=== PATIENT | female | born 1955 | race Caucasian/White ===

== ENCOUNTER → 2021-05-31 04:02 | Outpatient (CLI) | payer BC, SELFPAY ==
[2021-05-31 16:54] LABS: SARS-CoV-2 RNA PCR Negative
== END ==
PROVIDERS: PCP Family Medicine; Visit Provider Internal Medicine Gastroenterology
DX: Z01.812 Encounter for preprocedural laboratory examination (principal); Z20.822 Contact with and (suspected) exposure to COVID-19
CPT/HCPCS: C9803; U0003; U0005

== ENCOUNTER 2021-06-03 01:06 | Day surgery (SDC) | payer BC, SELFPAY ==
[2021-05-20 07:44] VITALS: BMI 38.7
--- NOTE | 2021-06-02 16:25 | PM.HPGS ---
History of Present Illness History of Present Illness Consent: Risks, benefits, and alternatives have been discussed and questions answered. Patient agrees to proceed with procedure. Chief complaint: esophagitis Narrative: Edith Fletcher is a 65 year old female referred for investigation of chronic acid reflux disease. For the past couple months she has had excessive belching. She also passes quite a bit gas. She does have a CPAP machine. In addition she has had a cramping pain in the right side of her abdomen with no particular pattern. This began 1 month ago; it can last 15 minutes or even all night Review of Systems Review of Systems: All systems reviewed & are unremarkable except as noted in HPI and below PMFSH Past Medical History Medical History Asthma Essential (primary) hypertension Morbid obesity OAB (overactive bladder) MICHELLE (obstructive sleep apnea) Surgical History Surgical History History of esophagogastroduodenoscopy (EGD) Family History Family History Mother Family history of diabetes mellitus in first degree relative Sibling Family history of diabetes mellitus in first degree relative Family history of coronary artery disease Family history of malignant neoplasm of breast in first degree relative Father Family history of coronary artery disease Social History Social History Smoking packs per day: 1 Smoking cigarettes per day: 20.0 Smoking status: Former smoker Tobacco type: cigarettes Smoking end date: 07/23/95 Alcohol intake: never Substance use: never Substance use type: does not use Living arrangements: with family Gender identity (if verbalized by the patient): Female Spiritual care concerns: No Meds Home Medications and Allergies Home Medications Medication Instructions Recorded Confirmed Type albuterol sulfate 2.5 mg INHALATION Q4-6H PRN 02/02/20 05/20/21 History ergocalciferol (vitamin D2) 1,250 mcg PO DAILY 05/20/21 05/20/21 History furosemide 20 mg PO PRN PRN 05/20/21 05/20/21 History Allergies Allergy/AdvReac Type Severity Reaction Status Date / Time methylprednisolone Allergy Unknown Other Verified 06/03/21 10:04 Exam Const: General: alert Orientation/consciousness: patient oriented x3 Resp: Auscultation: clear to auscultation bilaterally Cardio: Rhythm: regular rhythm GI: GI Palp: Yes Soft to palpation and No Tenderness to palpation present (GI) Neuro: General: patient oriented x3 Assessment and Plan Assessment and plan (1) GERD (gastroesophageal reflux disease): Code(s): K21.9 - Gastro-esophageal reflux disease without esophagitis Status: Acute Assessment and Plan: EGD with possible biopsy or dilatation or cautery.
[2021-06-03 10:06] VITALS: BP 183/88; PULSE 82; RESP 22; TEMP 36.4; O2SAT 98; BMI 39.9
[2021-06-03] MEDS: LACTATED RINGERS 1,000 ML 150 ML IV CONT (10:10)
--- NOTE | 2021-06-03 10:30 | WPDANESEPPF ---
Anes - Initial Pre Proc Eval Procedure: Operation Date: 06/03/21 11:00 Proposed Procedures p Esophagogastroduodenoscopy - Mahamed Recinos MD Date/Time: 06/03/21 10:30 Surgeon: Mahamed Recinos MD Pre Op Diagnosis: esophagitis Patient Data Age: 65 Gender: F Height: 1.52 m Weight: 92.6 kg Last Vital Signs Temp 36.4 C 06/03/21 10:06 Pulse 82 06/03/21 10:06 Resp 22 H 06/03/21 10:06 BP 183/88 H 06/03/21 10:06 Pulse Ox 98 06/03/21 10:06 Allergies Allergy/AdvReac Type Severity Reaction Status Date / Time methylprednisolone Allergy Unknown Other Verified 06/03/21 10:04 Home Medications Medication Instructions Recorded Confirmed Type albuterol sulfate 2.5 mg INHALATION Q4-6H PRN 02/02/20 05/20/21 History ergocalciferol (vitamin D2) 1,250 mcg PO DAILY 05/20/21 05/20/21 History furosemide 20 mg PO PRN PRN 05/20/21 05/20/21 History Patient hx anesthesia problems: none Family hx anesthesia problems: none Results Review: All pre-operative results and documents have been reviewed as part of the pre-operative evaluation. [facility] Past Medical History Medical History (Updated 06/03/21 @ 10:30 by Carlos Mcnulty MD) Asthma Essential (primary) hypertension Morbid obesity OAB (overactive bladder) MICHELLE (obstructive sleep apnea) Surgical History Surgical History (Updated 06/03/21 @ 10:31 by Carlos Mcnulty MD) History of esophagogastroduodenoscopy (EGD) Family History Family History (System 11/26/19 @ 14:23 by Chiqui Vail) Mother Family history of diabetes mellitus in first degree relative Sibling Family history of diabetes mellitus in first degree relative Family history of coronary artery disease Family history of malignant neoplasm of breast in first degree relative Father Family history of coronary artery disease Social History Social History Smoking packs per day: 1 Smoking cigarettes per day: 20.0 Smoking status: Former smoker Tobacco type: cigarettes Smoking end date: 07/23/95 Alcohol intake: never Substance use: never Substance use type: does not use Living arrangements: with family Gender identity (if verbalized by the patient): Female Spiritual care concerns: No Anes - Eval Final PreProcedure Day of Procedure 06/03/21 10:30 Patient weight: morbidly obese Heart: regular rate and rhythm Lungs: clear to auscultation Airway: Mallampati scale class III and special considerations poor opening Neurological: alert and oriented ASA classification: III Emergent: no Anesthetic plan: proceed Anesthesia type and monitoring: general GIVS and standard monitoring Results Review: All pre-operative results and documents have been reviewed as part of the pre-operative evaluation. Informed Consent: The patient's anesthetic plan and its attendant risks and benefits were discussed with the patient/family/POA. Questions were solicited and answers provided to the satisfaction of the patient/family/POA.
[2021-06-03 11:47] VITALS: BP 137/80; PULSE 92; RESP 22; O2SAT 98
[2021-06-03 11:57] VITALS: BP 144/87; PULSE 88; RESP 19; O2SAT 97
[2021-06-03 12:07] VITALS: BP 155/88; PULSE 83; RESP 15; O2SAT 98
== END 2021-06-03 12:30 | disposition home or self-care (01) ==
PROVIDERS: PCP Family Medicine; Visit Provider Internal Medicine Gastroenterology
PROC: 0DJ08ZZ Inspection of Upper Intestinal Tract, Via Natural or Artificial Opening Endoscopic (ICD-10-PCS; CPT 43235; principal; 2021-06-03 11:00)
DX: K21.00 Gastro-esophageal reflux disease with esophagitis, without bleeding (principal); R14.2 Eructation; K25.9 Gastric ulcer, unspecified as acute or chronic, without hemorrhage or perforation; J45.909 Unspecified asthma, uncomplicated; I10 Essential (primary) hypertension; G47.33 Obstructive sleep apnea (adult) (pediatric); N32.81 Overactive bladder; Z87.891 Personal history of nicotine dependence; E66.9 Obesity, unspecified; Z68.39 Body mass index [BMI] 39.0-39.9, adult; Z79.51 Long term (current) use of inhaled steroids
CPT/HCPCS: 43239; 87081; 88305; J2704; J7120

== ENCOUNTER 2024-12-17 16:29 | Emergency (ER) | payer MEDICARE, SELFPAY ==
--- OUTSIDE RECORDS SUMMARY | 2024-12-17 16:33 | XMS_ITS | CONTINUITY OF CARE DOCUMENT ---
Author Name carlosxuanharper Address Unknown Organization [facility] Address [id number] [place] [address] [address] [place] [address] Phone [phone] Care Team Providers Care [place] Refinisher Name Role Phone Froilan Philip MD Unavailable [phone] Kael Awan MD Unavailable Kael Awan MD Unavailable [phone] INSURANCE PROVIDERS Payer name Policy type / Coverage type [place] red [employer] ID [id number]
--- OUTSIDE RECORDS SUMMARY | 2024-12-17 16:34 | XMS_ITS | Clinical Summary ---
Author Organization [facility] Address [address] [place] [address] Care Team Providers Care Card Seller Name Role Phone Tyler Davis MD Primary Care Provider [phone] Allergies Active Allergy Reactions Criticality Noted Date Comments Lisinopril Headache,Other (See comments),Rash Medium 06/13/2023 Morphine Other (See comments) Low 01/05/2023 Pt doesn't like it It makes me feel like I am floating on air Omeprazole Other (See comments) Low 02/13/2018 It doesn't work Famotidine Rash Medium 08/21/2019 Prednisone Rash Medium 08/21/2019 Prednisone alone is ok. If I take prednisone with a lot of other medications I get a rash Medications amLODIPine (NORVASC) 2.5 mg tablet 019 Active benzonatate (TESSALON) 100 mg capsule TK ONE C PO TID PRN COU Active mupirocin (BACTROBAN) 2 % ointment KRIS EXT AA TID FOR 7 DAYS Active tolterodine LA (DETROL LA) 2 mg 24 hr capsule 020 Active triamcinolone (KENALOG) 0.1 % cream KRIS EXT AA BID 019 Active traMADoL (ULTRAM) 50 mg tablet Take 1 tablet (50 mg total) by mouth every 6 (six) hours as needed for pain 10 tablet 023 Active fluticasone propionate (FLONASE) 50 mcg/actuation nasal spray Administer 1 spray into affected nostril(s) daily as needed Active fluconazole (DIFLUCAN) 150 mg tablet Take 1 tablet by mouth today, may repeat dose in 3 days if symptoms persist. Active ketoconazole (NIZORAL) 2 % cream Active hydroCHLOROthiazi de (MICROZIDE) 12.5 mg capsule TAKE 1 CAPSULE(12.5 MG) BY MOUTH EVERY MORNING Active furosemide (LASIX) 20 mg tablet TAKE 1 TABLET BY MOUTH EVERY DAY FOR 30 DAYS Active aspirin 81 mg enteric coated tablet Take 1 tablet (81 mg total) by mouth daily Active fluticasone propion-salmetero L (ADVAIR DISKUS) 250-50 mcg/dose diskus inhaler Inhale 1 puff 2 (two) times a day 023 Active fluticasone propion-salmetero L (ADVAIR DISKUS) 250-50 mcg/dose diskus inhaler Inhale 1 puff 2 (two) times a day 023 Active HYDROcodone-aceta minophen (NORCO) 5-325 mg per tablet Take 1 tablet by mouth every 6 (six) hours as needed 025 Active LORazepam (ATIVAN) 0.5 mg tablet Take 1 tablet (0.5 mg total) by mouth 2 (two) times a day as needed Active nitrofurantoin monohydrate (MACROBID) 100 mg capsule Take 1 capsule (100 mg total) by mouth 2 (two) times a day Active nitroglycerin (NITROSTAT) 0.4 mg SL tablet 025 Active ondansetron ODT (ZOFRAN-ODT) 4 mg disintegrating tablet Take 1 tablet (4 mg total) by mouth every 8 (eight) hours as needed Active oseltamivir (TAMIFLU) 75 mg capsule TAKE 1 CAPSULE BY MOUTH TWICE A DAY FOR 5 DAYS Active traZODone (DESYREL) 50 mg tablet Take 1 tablet (50 mg total) by mouth daily Active predniSONE (DELTASONE) 20 mg tablet TAKE 2 TABLETS BY MOUTH EVERY DAY FOR 5 DAYS Active meloxicam (MOBIC) 7.5 mg tablet Take 1 tablet (7.5 mg total) by mouth daily 30 tablet 2 025 Active albuterol 1.25 mg/3 mL nebulizer solution VVN Q 6 H PRF WHZ 020 2024 Discontinued meloxicam (MOBIC) 7.5 mg tablet 020 2024 Discontinued(R eorder) albuterol (PROAIR RESPICLICK) 90 mcg/actuation inhaler Inhale 2 puffs every 6 (six) hours as needed for wheezing 2024 Discontinued celecoxib (CeleBREX) 200 mg capsule Take 1 capsule (200 mg total) by mouth daily 021 2024 Discontinued Hospital, Clinic, or Other Facility Administered Medication Ordered Dose Route Frequency Start Date End Date Status BUPivacaine HCl (MARCAINE) 0.5 % (5 mg/mL) injection 6 mLIndications:Pain in both knees, unspecified chronicity,Bilateral primary osteoarthritis of knee 6 mL OTHER One-Time Injection 11/21/2024 5 Ended BUPivacaine HCl (MARCAINE) 0.5 % (5 mg/mL) injection 6 mLIndications:Pain in both knees, unspecified chronicity,Bilateral primary osteoarthritis of knee 6 mL OTHER One-Time Injection 11/21/2024 5 Ended methylPREDNISolone acetate (DEPO-medrol) injection 80 mgIndications:Pain in both knees, unspecified chronicity,Bilateral primary osteoarthritis of knee 80 mg intra-artic One-Time Injection 11/21/2024 5 Ended triamcinolone (KENALOG) 40 mg/mL injection 80 mgIndications:Pain in both knees, unspecified chronicity,Bilateral primary osteoarthritis of knee 80 mg intra-artic One-Time Injection 11/21/2024 5 Ended Active Problems Problem Noted Date Diagnosed Date Encounter for well woman exam with abnormal find ings 12/05/2023 PERRY (stress urinary incontinence, female) 2023 Vaginal odor 12/05/2023 Encounters Date Type Department Care Team Description 12/17/2024 3:45 PM CDT Office Visit [facility] Care at [address] [address] Marlene Vail PA Pelvic pain (Primary Dx) 12/16/2024 Telephone [facility] [address] [place] [address] Office [address], [place] [address] 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 12/04/2024 Telephone [facility] [address] [place] [phone] Lety Rodriguez, SOPHIA Test Results 12/04/2024 Results Follow-Up [facility] [address] [place] [address] [place] [phone] Vi Royal, LUIS E Urine culture Urine, clean voided, NuSwab BV and Mariah, JUAN R 12/04/2024 Telephone [facility] [address] [place] [phone] Lety Rodriguez, SOPHIA Follow-Up Call 24-48 Hours 12/03/2024 11:43 AM CDT - 12/03/2024 11:59 PM CDT Hospital Encounter [facility] [address] [place] [phone] Almaz Galvez MD Abnormal ultrasound of breast Discharge Disposition: Discharge to home or self care 12/03/2024 11:12 AM CDT - 12/03/2024 11:59 PM CDT Hospital Encounter [facility] [address] [place] [phone] Almaz Galvez MD Abnormal ultrasound of breast Discharge Disposition: Discharge to home or self care 12/02/2024 Orders Only [facility] [address] [place] [address] Office Building [address] [place] [phone] Almaz Galvez MD Osteoporosis, unspecified osteoporosis type, unspecified pathological fracture presence (Primary Dx) 12/01/2024 11:30 AM CDT Office Visit [facility] [address] [facility] Office [address] [place] [address] Vi Royal NP Vaginal discharge (Primary Dx); Vaginal odor; Burning with urination; Post-traumatic stress 12/01/2024 Telephone [facility] [address] [facility] Office Building [address] [place] [address] Jade Schulz Referral Request 11/28/2024 Results Follow-Up [facility] [address] [facility] Office [address] [place] [address] Almaz Galvez MD Dexa Axial Skeleton Bone Density 1 or 2 Site 11/27/2024 12:16 PM CDT - 11/27/2024 11:59 PM CDT Hospital Encounter [facility] [address] [place] [address] [place] [phone] Postmenopausal Discharge Disposition: Discharge to home or self care 11/21/2024 8:15 AM CDT Office Visit [facility] [address] [facility] Office Building [address] [place] [address] Lucia Moncada NP Pain in both knees, unspecified chronicity (Primary Dx); Bilateral primary osteoarthritis of knee; Class 2 obesity due to excess calories with body mass index (BMI) of 35.0 to 35.9 in adult, unspecified whether serious comorbidity present 11/21/2024 7:27 AM CDT - 11/21/2024 11:59 PM CDT Hospital Encounter [facility] [address] [facility] [address] [place] [address] Pain in both knees, unspecified chronicity Discharge Disposition: Discharge to home or self care 11/13/2024 Orders Only [facility] [address] [place] [address] [place] [phone] Nieves Mario RN 11/13/2024 Telephone [facility] [address] [place] [address] [place] [phone] Nieves Mario RN Appointment 10/20/2024 Telephone [facility] [address] [facility] [address] [place] [phone] Lety Rodriguez RN 09/30/2024 Telephone [facility] [address] [facility] [address] [place] [phone] Ayesha Ramirez, violin maker hand Only from Last 3 Months Surgical History Surgery Date Site/Laterality Comments HYSTERECTOMY SECTION UPPER GASTROINTESTINAL ENDOSCOPY BREAST BIOPSY 12/03/2024 Right Medical History Medical History Date Comments Osteoarthritis Hypertension MICHELLE on CPAP Dysphagia Asthma Family History Medical History Relation Name Comments Arthritis Father Heart disease Father Arthritis Mother Diabetes Mother Breast cancer Sister Relation Name Status Comments Father Mother Sister Social History Tobacco Use Types Packs/Day Years Used Date Smoking Tobacco: Former Cigarettes 1 5 2 000 - 2004 Smokeless Tobacco: Never Tobacco Cessation:Counseling Given: Not Answered Alcohol Use Standard Drinks/Week Comments Never 0 (1 standard drink = 0.6 oz pur e alcohol) AUDIT-C Answer Date Recorded Q1: How often do you have a drink containing alc ohol? Never 10/09/2023 Average Number of Drinks Not on file 024 Frequency of Binge Drinking Not on file 09/20 Personal Safety Answer Date Recorded Have you ever been in or are you currently in a harmful physical or emotional relationship or is someone making you feel afraid or unsafe? 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 Not on file Not on file Obstetrics History Para Term AB IAB SAB Ectopic Multiple Livin g Live Births 3 3 3 Date Outcome GA Total Labor Labor/2nd/3rd Weight Sex Type Anes PTL Elvia A1 A5 Name Clin 1974 Term M CS-LTr anv Donal 1975 Term M CS-LTr anv Paul 1977 Term M CS-LTr anv Mendel Last Filed Vital Signs Vital Sign Reading Time Taken Comments Blood Pressure 172/87 12/17/2024 3:46 PM CDT Pulse 94 12/17/2024 3:46 PM CDT Temperature 36.6 C (97.8 F) 12/17/2024 3:46 PM CDT Respiratory Rate 18 12/17/2024 3:46 PM CDT Oxygen Saturation 96% 12/17/2024 3:46 PM CDT Inhaled Oxygen Concentration - - Weight 77.2 kg (170 lb 3.2 oz) 12/17/2024 3:46 P M CDT Height 146.1 cm (4' 9.52) 12/17/2024 3:46 PM CD T Body Mass Index 36.17 12/17/2024 3:46 PM CDT Plan of Treatment Health Maintenance Due Date Last Done Comments Colon Cancer Screening-Colonoscopy 1955 Depression Screening 1955 Hepatitis C Screening 1955 Hepatitis B Screening 1975 Zoster Vaccine (1 of 2) 2007 Pneumococcal vaccine 65+ (2 of 2 - PCV) 10/16/2020 0 10/17/2019 Covid-19 Vaccine (2 - season) 2024 Well Visit 65+ 12/03/2024 12/04/2023 Influenza Vaccine (Season Ended) 2025 Breast Cancer Screening-Mammogram 09/16/2025 025 Fall Risk Assessment 12/03/2025 12/03/2024 DTaP/Tdap/Td Vaccine (2 - Td or Tdap) 05/10/2026 Osteoporosis Screening-Bone Density Scan 11/27/2026 11/27/2024, 09/10/2019 Medical Devices Implanted Type Area Paperhanger Assistant Device Identifier Shelf Expiration Date Model / Serial / Lot Bard Peripheral Vascular Senomark Ultracor Bard 14ga 10cm Rigid Needle 1 Microfiber Pad [id number] - [id number] Implanted:Qty: 1 on 12/03/2024 at [facility] [employer] [id number] / / Procedures Procedure Name Priority Date/Time Associated Diagnosis Comments MAMM POST CLIP PLACEMENT RIGHT Schedule Routine, Read Routine (OP Routine) 12/03/2024 1:25 PM CDT Abnormal ultrasound of breast US GUIDED BREAST BIOPSY RIGHT Schedule Routine, Read Routine (OP Routine) 12/03/2024 12:55 PM CDT Abnormal ultrasound of breast SURGICAL PATHOLOGY Routine 12/03/2024 12:47 PM CDT Abnormal ultrasound of breast NUSWAB BV AND MARIAH, JUAN R Routine 12/01/2024 4:41 AM CDT URINE CULTURE Routine 12/01/2024 2:31 AM CDT Burning with urination DEXA AXIAL SKELETON BONE DENSITY 1 OR MORE SITES Schedule Routine, Read Routine (OP Routine) 11/27/2024 12:56 PM CDT Postmenopausal [place] ARTHROCENTESIS ASPIR&/INJ MAJOR JT/BURSA W/O US Routine 11/21/2024 8:15 AM CDT Pain in both knees, unspecified chronicity Bilateral primary osteoarthritis of knee XR KNEE RIGHT 4 OR MORE VIEWS Schedule Routine, Read Routine (OP Routine) 11/21/2024 8:03 AM CDT Pain in both knees, unspecified chronicity XR KNEE LEFT 4 OR MORE VIEWS Schedule Routine, Read Routine (OP Routine) 11/21/2024 8:03 AM CDT Pain in both knees, unspecified chronicity XR PELVIS 1 OR 2 VIEWS Schedule Routine, Read Routine (OP Routine) 11/21/2024 8:03 AM CDT Pain in both knees, unspecified chronicity DIAGNOSTIC MAMMOGRAM BILATERAL W SUNDAY Schedule Routine, Read Routine (OP Routine) 09/16/2024 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 There is no evidence of atypia or malignancy. This is concordant and benign. Resume annual screening mammography in 12 months. Electronically signed by: Nuris Triplett MD Impressions 12/03/2024 1:51 PM CDT Ultrasound-guided core needle biopsy was performed without complication. Pathology report is pending. OVERALL FINAL ASSESSMENT: Post-procedure mammogram for marker placement. Electronically signed by: Jennifer Cordero M.D. Narrative 12/03/2024 1:51 PM CDT ULTRASOUND-GUIDED CORE BIOPSY RIGHT BREAST, RIGHT POSTPROCEDURE MAMMOGRAM 2D CLINICAL HISTORY: 69-year-old woman for core needle biopsy of the right breast at 9:30 o'clock 7 cm from nipple. PROCEDURE: The risks, and potential complications of percutaneous biopsy, including bleeding and infection, were reviewed with the patient. Her written informed consent was obtained. A time-out procedure was performed. The patient was positioned on the ultrasound table and the skin overlying the outer central breast was prepped and draped in usual sterile fashion. 1% lidocaine was administered for subcutaneous anesthesia, and 1% lidocaine with epinephrine was infiltrated about the mass. A skin esdras was made with a #11 blade. Under ultrasound visualization, a 14-gauge spring-loaded Bard biopsy needle was advanced to the mass, and 4 core specimens were obtained. A ribbon-shaped biopsy marker was placed. Hemostasis was obtained. The skin incision was closed with skin glue. The excised tissue was placed in formalin and transported to pathology. Postbiopsy two view mammography confirms postbiopsy changes in the upper outer breast, and that the biopsy marker is in the expected location. Density: There are scattered areas of fibroglandular density. An icepack was applied to the biopsy site. The patient was given written and verbal post-biopsy instructions. She tolerated the procedure well, and left the [facility] in good condition, without evidence of immediate complication. us Almaz Galvez MD IMG MAMMO PROCEDURES Edited Result - Final * US Guided Breast Biopsy Right (12/03/2024 12:55 PM CDT) Anatomical Region Laterality Modality Breast Right Ultrasound 12/03/2024 1:51 PM CDT Addenda Addendum by Nuris Triplett MD on 12/04/2024 2:41 PM CDT The pathology report dictated separately demonstrates a benign fibroadenoma. There is no evidence of atypia or malignancy. This is concordant and benign. Resume annual screening mammography in 12 months. Electronically signed by: uNris Triplett MD Impressions 12/03/2024 1:51 PM CDT Ultrasound-guided core needle biopsy was performed without complication. Pathology report is pending. OVERALL FINAL ASSESSMENT: Post-procedure mammogram for marker placement. Electronically signed by: Jennifer Cordero M.D. Narrative 12/03/2024 1:51 PM CDT ULTRASOUND-GUIDED CORE BIOPSY RIGHT BREAST, RIGHT POSTPROCEDURE MAMMOGRAM 2D CLINICAL HISTORY: 69-year-old woman for core needle biopsy of the right breast at 9:30 o'clock 7 cm from nipple. PROCEDURE: The risks, and potential complications of percutaneous biopsy, including bleeding and infection, were reviewed with the patient. Her written informed consent was obtained. A time-out procedure was performed. The patient was positioned on the ultrasound table and the skin overlying the outer central breast was prepped and draped in usual sterile fashion. 1% lidocaine was administered for subcutaneous anesthesia, and 1% lidocaine with epinephrine was infiltrated about the mass. A skin esdras was made with a #11 blade. Under ultrasound visualization, a 14-gauge spring-loaded Bard biopsy needle was advanced to the mass, and 4 core specimens were obtained. A ribbon-shaped biopsy marker was placed. Hemostasis was obtained. The skin incision was closed with skin glue. The excised tissue was placed in formalin and transported to pathology. Postbiopsy two view mammography confirms postbiopsy changes in the upper outer breast, and that the biopsy marker is in the expected location. Density: There are scattered areas of fibroglandular density. An icepack was applied to the biopsy site. The patient was given written and verbal post-biopsy instructions. She tolerated the procedure well, and left the [facility] in good condition, without evidence of immediate complication. us Almaz Galvez MD IMG MAMMO PROCEDURES Edited Result - Final * Surgical pathology (12/03/2024 12:47 PM CDT) Tissue (Breast biopsy, needle core) 12/03/2024 12:47 PM CDT Comment:Dr. Cordero- Hypoec hoic mass. Narrative PATHOLOGY [facility] - 12/04/2024 2:02 PM CDT [address] [address] Tele: Nieves Ibrahim MD - Circuit Board Repair Technician Note to Patients: This report may contain a detailed description of human tissue sent by a health care provider to the laboratory for pathologic evaluation. The content of this report is essential for diagnosis and may provide important critical findings. This information may be unfamiliar to patients to review without a medical professional present. It is advised that the patient review this report in the presence of a health care provider who can answer questions and explain the details. SURGICAL PATHOLOGY REPORT Patient Name: EDITH WITT Address: [address] [place] [phone] Gender: F : 1955 (Age: 69) Service: Location: , Hospital #: [id number] Patient Type: [facility] Taken: 12/03/2024 Received 12/03/2024 Reported: 12/04/2024 Physician(s): [facility] - MD Tyler Black M.D. DIAGNOSIS: Breast, right, 9:30, 7 cm from nipple, biopsy of mass: - Fibroadenoma - Negative for atypia or malignancy /12/04/2024 14:02 Examining Pathologist: Carlos Valdez M.D. Report Reviewed and Electronically Signed By Carlos Valdez M.D. SPECIMEN TYPE: A: RT BREAST 9:30 7CMFN; 4X14G CORES CLINICAL IMPRESSION AND HISTORY: Right breast 9:30-hypoechoic mass. GROSS DESCRIPTION: Received in formalin labeled with EDITH GRAVOIS and right breast 9:30, 7 cm from nipple, core 4 x 14 gauge cores are five singh fibrous cores of tissue ranging from 0.3 cm to 1.3 cm. Specimen is inked, placed in filter paper. The specimen was collected 12:47 PM placed in fixative at 12:55 PM on 12/03/2024. Following standard processing protocols, this specimen will be fixed for no less than 6 hours and no greater than 72 hours. Exceptions to this protocol will be noted in the final report. The specimen is entirely submitted in cassette labeled A1. [facility] MICROSCOPIC DESCRIPTION: Sections of the right breast 9:30, 7 cm from nipple show strands of dense sclerotic breast tissue stroma with a few flattened branching ductal components and focal adenosis with few minute calcifications. To further evaluate the material deeper levels are performed and show no additional findings. Immunohistochemical stains are performed to further evaluate the material. Pancytokeratin stain shows no subtle infiltrative epithelial components and P63 and Calponin IHC stains demonstrate retention of myoepithelium around ductal and lobular components. Clerical Data Follows A; 19814, 02229, 10656(2) REPORT IMAGES AND/OR SCANNED DOCUMENTS ONLY VIEWABLE IN PDF FORMAT The immunohistochemical test(s) cited in this report, if any, was developed and its performance characteristics determined by [facility]. It has not been cleared or approved by the U.S. Food and Drug Administration. The FDA has determined that such clearance or approval is not necessary. This test is used for clinical purposes. It should not be regarded as investigational or for research. [facility] is certified under the Clinical Laboratory Improvement Amendments of 1988 (CLIA) as qualified to perform high complexity testing. Immunostains were performed on formalin-fixed paraffin embedded tissue using a polymer diaminobenzidine chromogen detection system. Antibodies used may include clone SP1 (rabbit monoclonal, estrogen receptor), clone 1E2 (rabbit monoclonal progesterone receptor), Ki-67 (rabbit monoclonal, 30-9), CD117 (rabbit polyclonal, c-kit), and anti-Her-2/emilia (4B5) (rabbit monoclonal primary antibody). In the event that immunohistochemistry or special stains have been performed, attending physician has confirmed appropriateness of controls. Frozen section, operating room consultation, gross examination and dissection, and case sign out may have been performed in part or completely in the following laboratories: [facility], [address] [facility], [place] [address] [facility], [address], [place] [address]. us Almaz Galvez MD LAB PATHOLOGY ORDERABLES Fi nal Result PATHOLOGY [facility] Laboratory Receiving [facility] [place], [place] [id number] * NuSwab BV and Mariah, JUAN R (12/01/2024 4:41 AM CDT) Atopobium vaginae Low - 0 Score [facility] - 01 BVAB 2 Low - 0 Score [facility] - 01 Megasphaera 1 Low - 0 Score [facility] - 01 Comment: Calculate total score by adding the 3 individual bacterial vaginosis (BV) marker scores together. Total score is interpreted as follows: Total score 0-1: Indicates the absence of BV. Total score 2: Indeterminate for BV. Additional clinical data should be evaluated to establish a diagnosis. Total score 3-6: Indicates the presence of BV. C. albicans DNA Negative Negative [facility] - 01 Mariah glabrata, JUAN R Negative Negative [facility] - 01 12/01/2024 4:41 AM CDT 12/01/2024 Comment:THIEN Dsouza [facility] - 12/02/2024 7:08 PM CDT Test(s) 947767- Atopobium vaginae; 640260- BVAB 2; 521931- Megasphaera 1 was developed and its performance characteristics determined by [facility]. It has not been cleared or approved by the Food and Drug Administration. Test(s) 873658-Mlwqqin albicans, JUAN R; 107699-Ocqvbad glabrata, JUAN R was developed and its performance characteristics determined by [facility]. It has not been cleared or approved by the Food and Drug Administration. Performed at: 01 - [address] [id number] Service Delivery Consultant: Didi Calov MD, Phone: [phone] us Vi Royal NP LAB MICROBIOLOGY - GEN ERAL ORDERABLES Final Result [facility] - 01 * Urine culture Urine, clean voided (12/01/2024 2:31 AM CDT) Urine culture Final report [facility] - Result 1 Comment [facility] - 01 Comment: Mixed urogenital yael 25,000-50,000 colony forming units per mL Urine, clean voided 12/01/2024 2:31 AM CDT 12/01/2024 Comment:UC Narrative [facility] - 12/03/2024 7:09 AM CDT Performed at: - [address] [id number] Service Delivery Consultant: Bill Vallejo PhD, Phone: [phone] Vi Royal NP LAB MICROBIOLOGY - GEN ERAL ORDERABLES Final [facility] * Dexa Axial Skeleton Bone Density 1 or 2 Site (11/27/2024 12:56 PM CDT) Anatomical Region Laterality Modality Body N/A Digital Radiogra phy 11/27/2024 1:29 PM CDT Impressions 11/27/2024 1:29 PM CDT 1. The bone mineral density of the lumbar spine is mildly decreased. 2. The bone mineral density of the left femoral neck is moderately decreased. 3. The bone mineral density of the left total hip is mildly decreased. 4. Overall, the above findings are diagnostic of osteoporosis by WHO criteria. 5. Calculation of fracture risk using the FRAX model is not appropriate in certain settings. It was not performed in this patient because the patient met the following condition(s): some t-score for spine total or hip total or femoral neck at, or below -2.5. General comments regarding interpretation of bone density measurements: A) In children, premenopausal woman and males under age 50 not at increased risk for fractures only Z-scores, not T-scores are used to indicate risk. A Z-score above -2.0 is defined as within the expected range for age and Z-score at or less than -2.0 is below the expected range for age. A Z-score below the expected range for age in a patient with recent fractures and/or chronic corticosteroid treatment is consistent with a diagnosis of osteoporosis. B) In post menopausal women and males over 50, comparison of the measured bone mineral density with the average value in young normal subjects (the T-score) has been found to be useful in assessing fracture risk. Fracture risk approximately doubles for each 1.0 standard deviation (SD) in individual's hip or spine bone mineral density is below the average value of young normal subjects. The World Health Organization (WHO) has defined T-scores of -1.0 to -2.5 as diagnostic of low bone mass (OSTEOPENIA), and T-scores of -2.5 or lower to be diagnostic of OSTEOPOROSIS, based on the site of lowest bone density. Note that there will be a change in reporting format and reference databases as patients move from the younger population (group A) to the older population (group B) The National Osteoporosis Foundation (www.nof.org) recommends adequate intake of calcium and vitamin D and regular weight-bearing exercise in all patients. They recommend pharmacologic treatment in postmenopausal women and men age 50 and older presenting with any of the followin) Osteoporosis, after appropriate evaluation to exclude secondary causes. 2) A hip or vertebral (clinical or radiographic) fracture, regardless of the bone density. 3) Low bone mass (Osteopenia) and one or more of: other prior fractures, secondary causes associated with high risk of fracture (such as glucocorticoid use or total immobilization), or computed high risk of fracture (10-yr probability of hip fracture >= 3% or a 10-yr probability of any major osteoporosis-related fracture >= 20% based on the [place].-adapted WHO algorithm), available at http://www.shef.ac.uk/FRAX). The radiology attending physician has personally reviewed this study, and had reviewed and/or edited this written report and agrees with it. Electronically signed by: Will Cortez M.D. Narrative 11/27/2024 1:29 PM CDT BONE DENSITOMETRY OF THE SPINE AND HIP DATE OF STUDY: 11/27/2024 HISTORY: 69-year-old postmenopausal woman. FINDINGS (SPINE): The bone mineral density of L1-L4 was assessed by dual-energy x-ray absorptiometry. The average bone mineral density within this region is 0.897 gm/sq-cm. This is 0.6 standard deviations above the mean of the average bone mineral density for age- and gender-matched subjects (the Z-score). It is 1.4 standard deviations below the mean peak bone mineral density in young adults (the T-score). FINDINGS (FEMORAL NECK): The bone mineral density of the left femoral neck was assessed by dual-energy x-ray absorptiometry. The average bone mineral density within the femoral neck region is 0.521 gm/sq-cm. This is 1.3 standard deviations below the mean of the average bone mineral density for age- and gender-matched subjects (the Z-score). It is 3.0 standard deviations below the mean peak bone mineral density in young adults (the T-score). FINDINGS (TOTAL HIP): The bone mineral density of the left hip was assessed by dual-energy x-ray absorptiometry. The average bone mineral density within the total hip region is 0.699 gm/sq-cm. This is 0.6 standard deviations below the mean of the average bone mineral density for age- and gender-matched subjects (the Z-score). It is 2.0 standard deviations below the mean peak bone mineral density in young adults (the T-score). SUMMARY OF CURRENT RESULTS: Region BMD T-score Z-score AP Spine (L1-L4) 0.897 -1.4 0.6 Femoral Neck (Left) 0.521 -3.0 -1.3 Total Hip (Left) 0.699 -2.0 -0.6 Procedure Note Will Cortez MD - 11/27/2024 BONE DENSITOMETRY OF THE SPINE AND HIP DATE OF STUDY: 11/27/2024 HISTORY: 69-year-old postmenopausal woman. FINDINGS (SPINE): The bone mineral density of L1-L4 was assessed by dual-energy x-ray absorptiometry. The average bone mineral density within this region is 0.897 gm/sq-cm. This is 0.6 standard deviations above the mean of the average bone mineral density for age- and gender-matched subjects (the Z-score). It is 1.4 standard deviations below the mean peak bone mineral density in young adults (the T-score). FINDINGS (FEMORAL NECK): The bone mineral density of the left femoral neck was assessed by dual-energy x-ray absorptiometry. The average bone mineral density within the femoral neck region is 0.521 gm/sq-cm. This is 1.3 standard deviations below the mean of the average bone mineral density for age- and gender-matched subjects (the Z-score). It is 3.0 standard deviations below the mean peak bone mineral density in young adults (the T-score). FINDINGS (TOTAL HIP): The bone mineral density of the left hip was assessed by dual-energy x-ray absorptiometry. The average bone mineral density within the total hip region is 0.699 gm/sq-cm. This is 0.6 standard deviations below the mean of the average bone mineral density for age- and gender-matched subjects (the Z-score). It is 2.0 standard deviations below the mean peak bone mineral density in young adults (the T-score). SUMMARY OF CURRENT RESULTS: Region BMD T-score Z-score AP Spine (L1-L4) 0.897 -1.4 0.6 Femoral Neck (Left) 0.521 -3.0 -1.3 Total Hip (Left) 0.699 -2.0 -0.6 IMPRESSION: 1. The bone mineral density of the lumbar spine is mildly decreased. 2. The bone mineral density of the left femoral neck is moderately decreased. 3. The bone mineral density of the left total hip is mildly decreased. 4. Overall, the above findings are diagnostic of osteoporosis by WHO criteria. 5. Calculation of fracture risk using the FRAX model is not appropriate in certain settings. It was not performed in this patient because the patient met the following condition(s): some t-score for spine total or hip total or femoral neck at, or below -2.5. General comments regarding interpretation of bone density measurements: A) In children, premenopausal woman and males under age 50 not at increased risk for fractures only Z-scores, not T-scores are used to indicate risk. A Z-score above -2.0 is defined as within the expected range for age and Z-score at or less than -2.0 is below the expected range for age. A Z-score below the expected range for age in a patient with recent fractures and/or chronic corticosteroid treatment is consistent with a diagnosis of osteoporosis. B) In post menopausal women and males over 50, comparison of the measured bone mineral density with the average value in young normal subjects (the T-score) has been found to be useful in assessing fracture risk. Fracture risk approximately doubles for each 1.0 standard deviation (SD) in individual's hip or spine bone mineral density is below the average value of young normal subjects. The World Health Organization (WHO) has defined T-scores of -1.0 to -2.5 as diagnostic of low bone mass (OSTEOPENIA), and T-scores of -2.5 or lower to be diagnostic of OSTEOPOROSIS, based on the site of lowest bone density. Note that there will be a change in reporting format and reference databases as patients move from the younger population (group A) to the older population (group B) The National Osteoporosis Foundation (www.nof.org) recommends adequate intake of calcium and vitamin D and regular weight-bearing exercise in all patients. They recommend pharmacologic treatment in postmenopausal women and men age 50 and older presenting with any of the followin) Osteoporosis, after appropriate evaluation to exclude secondary causes. 2) A hip or vertebral (clinical or radiographic) fracture, regardless of the bone density. 3) Low bone mass (Osteopenia) and one or more of: other prior fractures, secondary causes associated with high risk of fracture (such as glucocorticoid use or total immobilization), or computed high risk of fracture (10-yr probability of hip fracture >= 3% or a 10-yr probability of any major osteoporosis-related fracture >= 20% based on the [place].-adapted WHO algorithm), available at http://www.shef.ac.uk/FRAX). The radiology attending physician has personally reviewed this study, and had reviewed and/or edited this written report and agrees with it. Electronically signed by: Will Cortez M.D. us Almaz Galvez MD IMG DXA PROCEDURES Final Re sult * WI ARTHROCENTESIS ASPIR&/INJ MAJOR JT/BURSA W/O US (11/21/2024 8:15 AM CDT) Narrative Lucia Moncada NP - 11/21/2024 8:15 AM CDT Lucia Moncada NP 11/21/2024 8:37 AM Large Joint Injection: bilateral knee Performed by: Lucia Moncada NP Authorized by: Lucia Moncada NP Large Joint Injection/Aspiration: Consent Given by: Patient Site marked: the procedure site was marked Verbal consent obtained: Yes Written consent obtained: Yes Supporting Documentation: Indications: Pain Procedure Details: Location: Knee Site: Bilateral knee Prep: patient was prepped and draped in usual sterile fashion Prep: patient was prepped using a clean technique Needle Size: 21 G Approach: Anterolateral Ultrasound guided: No Fluroscopic guidance: No Medications Right Large Joint Injection: 6 mL BUPivacaine HCl 0.5 % (5 mg/mL); 80 mg methylPREDNISolone acetate 40 mg/mL Medications Left Large Joint Injection: 6 mL BUPivacaine HCl 0.5 % (5 mg/mL); 80 mg triamcinolone 40 mg/mL Patient tolerance: Patient tolerated the procedure well with no immediate complications us Lucia Moncada FISH AND WILDLIFE BIOLOGIST IN CLINIC/BEDSIDE ORDERAB LES Final Result * XR Pelvis 1 or 2 Views (11/21/2024 8:03 AM CDT) Anatomical Region Laterality Modality Body, Pelvis N/A Computed Radiogr aphy 11/21/2024 8:48 AM CDT Impressions 11/21/2024 1:30 PM CDT 1. Moderate right, and moderate to severe left, medial compartment predominant tricompartmental bilateral knee osteoarthritis. 2. Mild bilateral hip osteoarthritis. Dictated by: Johny Castro M.D. The radiology attending physician has personally reviewed this study, and had reviewed and/or edited this written report and agrees with it. Electronically signed by: Rachid Guadalupe M.D. Narrative 11/21/2024 1:30 PM CDT EXAMINATION: XR PELVIS 1 OR 2 VIEWS, XR KNEE LEFT 4 OR MORE VIEWS, XR KNEE RIGHT 4 OR MORE VIEWS HISTORY: Bilateral knee pain COMPARISON: CT 12/25/2023, 03/03/2023 radiographs FINDINGS: 4 views of each of the knees and one view of the pelvis are provided. Right knee: Moderate medial compartment predominant, tricompartmental right knee osteoarthritis. No acute fracture. Small right knee joint effusion. Left knee: Moderate to severe medial compartment predominant, tricompartmental left knee osteoarthritis. No acute fracture. Small to moderate left knee joint effusion. Pelvis: Mild bilateral hip osteoarthritis. No acute fracture. Hips are seated. Procedure Note Rachid Mojica MD - 11/21/2024 EXAMINATION: XR PELVIS 1 OR 2 VIEWS, XR KNEE LEFT 4 OR MORE VIEWS, XR KNEE RIGHT 4 OR MORE VIEWS HISTORY: Bilateral knee pain COMPARISON: CT 12/25/2023, 03/03/2023 radiographs FINDINGS: 4 views of each of the knees and one view of the pelvis are provided. Right knee: Moderate medial compartment predominant, tricompartmental right knee osteoarthritis. No acute fracture. Small right knee joint effusion. Left knee: Moderate to severe medial compartment predominant, tricompartmental left knee osteoarthritis. No acute fracture. Small to moderate left knee joint effusion. Pelvis: Mild bilateral hip osteoarthritis. No acute fracture. Hips are seated. IMPRESSION: 1. Moderate right, and moderate to severe left, medial compartment predominant tricompartmental bilateral knee osteoarthritis. 2. Mild bilateral hip osteoarthritis. Dictated by: Johny Castro M.D. The radiology attending physician has personally reviewed this study, and had reviewed and/or edited this written report and agrees with it. Electronically signed by: Rachid Guadalupe M.D. us Lucia Moncada FISH AND WILDLIFE BIOLOGIST IMG XR PROCEDURES Final R esult * XR Knee Right 4 or More Views (11/21/2024 8:03 AM CDT) Anatomical Region Laterality Modality Lower Extremities, Knee Right Computed Radiography 11/21/2024 8:48 AM CDT Impressions 11/21/2024 1:30 PM CDT 1. Moderate right, and moderate to severe left, medial compartment predominant tricompartmental bilateral knee osteoarthritis. 2. Mild bilateral hip osteoarthritis. Dictated by: Johny Castro M.D. The radiology attending physician has personally reviewed this study, and had reviewed and/or edited this written report and agrees with it. Electronically signed by: Rachid Guadalupe M.D. Narrative 11/21/2024 1:30 PM CDT EXAMINATION: XR PELVIS 1 OR 2 VIEWS, XR KNEE LEFT 4 OR MORE VIEWS, XR KNEE RIGHT 4 OR MORE VIEWS HISTORY: Bilateral knee pain COMPARISON: CT 12/25/2023, 03/03/2023 radiographs FINDINGS: 4 views of each of the knees and one view of the pelvis are provided. Right knee: Moderate medial compartment predominant, tricompartmental right knee osteoarthritis. No acute fracture. Small right knee joint effusion. Left knee: Moderate to severe medial compartment predominant, tricompartmental left knee osteoarthritis. No acute fracture. Small to moderate left knee joint effusion. Pelvis: Mild bilateral hip osteoarthritis. No acute fracture. Hips are seated. Procedure Note Rachid Mojica MD - 11/21/2024 EXAMINATION: XR PELVIS 1 OR 2 VIEWS, XR KNEE LEFT 4 OR MORE VIEWS, XR KNEE RIGHT 4 OR MORE VIEWS HISTORY: Bilateral knee pain COMPARISON: CT 12/25/2023, 03/03/2023 radiographs FINDINGS: 4 views of each of the knees and one view of the pelvis are provided. Right knee: Moderate medial compartment predominant, tricompartmental right knee osteoarthritis. No acute fracture. Small right knee joint effusion. Left knee: Moderate to severe medial compartment predominant, tricompartmental left knee osteoarthritis. No acute fracture. Small to moderate left knee joint effusion. Pelvis: Mild bilateral hip osteoarthritis. No acute fracture. Hips are seated. IMPRESSION: 1. Moderate right, and moderate to severe left, medial compartment predominant tricompartmental bilateral knee osteoarthritis. 2. Mild bilateral hip osteoarthritis. Dictated by: Johny Castro M.D. The radiology attending physician has personally reviewed this study, and had reviewed and/or edited this written report and agrees with it. Electronically signed by: Rachid Guadalupe M.D. Lucia Moncada NP IMG XR PROCEDURES Final R esult * XR Knee Left 4 or More Views (11/21/2024 8:03 AM CDT) Anatomical Region Laterality Modality Lower Extremities, Knee Left Computed Radiography 11/21/2024 8:48 AM CDT Impressions 11/21/2024 1:30 PM CDT 1. Moderate right, and moderate to severe left, medial compartment predominant tricompartmental bilateral knee osteoarthritis. 2. Mild bilateral hip osteoarthritis. Dictated by: Johny Castro M.D. The radiology attending physician has personally reviewed this study, and had reviewed and/or edited this written report and agrees with it. Electronically signed by: Rachid Guadalupe M.D. Narrative 11/21/2024 1:30 PM CDT EXAMINATION: XR PELVIS 1 OR 2 VIEWS, XR KNEE LEFT 4 OR MORE VIEWS, XR KNEE RIGHT 4 OR MORE VIEWS HISTORY: Bilateral knee pain COMPARISON: CT 12/25/2023, 03/03/2023 radiographs FINDINGS: 4 views of each of the knees and one view of the pelvis are provided. Right knee: Moderate medial compartment predominant, tricompartmental right knee osteoarthritis. No acute fracture. Small right knee joint effusion. Left knee: Moderate to severe medial compartment predominant, tricompartmental left knee osteoarthritis. No acute fracture. Small to moderate left knee joint effusion. Pelvis: Mild bilateral hip osteoarthritis. No acute fracture. Hips are seated. Procedure Note Fernando Guadalupe, Rachid Solis MD - 11/21/2024 EXAMINATION: XR PELVIS 1 OR 2 VIEWS, XR KNEE LEFT 4 OR MORE VIEWS, XR KNEE RIGHT 4 OR MORE VIEWS HISTORY: Bilateral knee pain COMPARISON: CT 12/25/2023, 03/03/2023 radiographs FINDINGS: 4 views of each of the knees and one view of the pelvis are provided. Right knee: Moderate medial compartment predominant, tricompartmental right knee osteoarthritis. No acute fracture. Small right knee joint effusion. Left knee: Moderate to severe medial compartment predominant, tricompartmental left knee osteoarthritis. No acute fracture. Small to moderate left knee joint effusion. Pelvis: Mild bilateral hip osteoarthritis. No acute fracture. Hips are seated. IMPRESSION: 1. Moderate right, and moderate to severe left, medial compartment predominant tricompartmental bilateral knee osteoarthritis. 2. Mild bilateral hip osteoarthritis. Dictated by: Johny Castro M.D. The radiology attending physician has personally reviewed this study, and had reviewed and/or edited this written report and agrees with it. Electronically signed by: Rachid Guadalupe M.D. us Lucia Moncada FISH AND WILDLIFE BIOLOGIST IMG XR PROCEDURES Final R esult * (ABNORMAL) Diagnostic Mammogram Bilateral W Sunday (09/16/2024 7:14 AM BEVEL MILL OPERATOR) Anatomical Region Laterality Modality Breast Bilateral Mammography 09/16/2024 8:10 AM BEVEL MILL OPERATOR Impressions 09/16/2024 8:10 AM BEVEL MILL OPERATOR 1. Area in the right breast at 9:30, 7 cm from the nipple. Recommend ultrasound-guided biopsy. These findings were discussed with the patient and all her questions were answered. Management of any palpable abnormality should be based on clinical grounds. The patient will follow-up with our nurse who will assist in further management. OVERALL FINAL ASSESSMENT: SUSPICIOUS. BI-RADS Category 4A: Low suspicion for malignancy. RECOMMENDATION: Ultrasound-guided biopsy of of the hypoechoic heterogeneous area in the right breast at 9:30. Electronically signed by: Leighton Sosa 09/16/2024 8:10 AM BEVEL MILL OPERATOR EXAMINATION: BILATERAL DIGITAL DIAGNOSTIC MAMMOGRAM INCLUDING CAD AND BILATERAL DIGITAL BREAST TOMOSYNTHESIS, bilateral breast limited ultrasound HISTORY: Intermittent lateral bilateral breast tenderness. COMPARISON: No prior exams were available TECHNIQUE: Full field digital mammographic views of BOTH breasts were performed, including computer aided detection (CAD) and BILATERAL digital breast tomosynthesis (DBT). BREAST PARENCHYMAL COMPOSITION: There are scattered areas of fibroglandular density. MAMMOGRAM FINDINGS: Left breast: Asymmetry in the lateral left breast spreads out on additional images. No suspicious micro-calcifications or areas of architectural distortion. Right breast: Focal asymmetry in the upper outer quadrant of the right breast partially spreads out. Left breast ultrasound: Focused ultrasound was performed of the lateral left breast which also is the area of tenderness. There is benign-appearing breast tissue. Right breast ultrasound: Focused ultrasound was performed of the lateral right breast which is also in the area of tenderness. At 9:30, 7 cm from the nipple is a heterogeneous hypoechoic area parallel to the tissues. It measures 1.8 x 0.4 x 1.3 cm. This probably corresponds to some of the focal asymmetry in the right breast on mammogram. Almaz Galvez MD IMG MAMMO PROCEDURES Final Result from Last 3 Months or Most Recently Relevant to Health Maintenance Insurance MEDICARE [employer]ET[employer] SENIOR SUPPLEMENT CHOICE [facility] [place] MEDICARE MEDICARE AET SENIOR SUPPLEMENT MEDICARE AET SENIOR SUPPLEMENT Advance Directives For more information, please contact: [phone] * Full Code (Latest Code Status on File) Date Activated Date Inactivated Comments 10/09/2023 7:29 AM 10/09/2023 4:26 PM Care Teams Card Seller Relationship Specialty [place] [address] [place] [address] PCP - General Family Practice 06/22/23
--- OUTSIDE RECORDS SUMMARY | 2024-12-17 16:34 | XMS_ITS | Encounter Summary ---
Author Organization [facility] Address [address] [place] [address] Care Team Providers Care Application Support Engineer Name Role Phone Tyler Davis MD Primary Care Provider [phone]- [phone] Encounter Details Date Type Department Care Team (Late st Contact Info) Description 12/04/2024 Results Follow-Up [facility] [address] [place] [address] Vi Royal, LUIS E [address] [facility] [address] [place] [address] Urine culture Urine, clean voided, [employer] and Mariah, JUAN R Social History Tobacco Use Types Packs/Day Years Used Date Smoking Tobacco: Former Cigarettes 1 2 000 - 2004 Smokeless Tobacco: Never Alcohol Use Standard Drinks/Week Comments Never 0 [...] 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
--- OUTSIDE RECORDS SUMMARY | 2024-12-17 16:34 | XMS_ITS | Encounter Summary ---
Author Organization [facility] Address [address] [place] [address] Care Team Providers Care Multiple Games Dealer Name Role Phone Tyler Davis MD Primary Care Provider [phone]- [phone] Reason for Visit * Reason Onset Date Comments ADMITTANCE ATTENDANT Problem 12/16/2024 Encounter Details Date Type Department Care Team (Late st Contact Info) Description 12/16/2024 Telephone [facility] [address] [facility] [address] [place] [address] Almaz Galvez MD [address] [facility] [address] [place] [address] ADMITTANCE ATTENDANT Problem Social History Tobacco Use Types Packs/Day Years [...] 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 Offered sooner but pt couldn't make. * Telephone Encounter - Marion Zuñiga - 12/16/2024 11:21 AM CDT SEC pt states she has a terrible odor in vaginal area that started this am, please advise [phone] documented in this encounter Plan of Treatment Not on file documented as of this encounter Visit Diagnoses Not on filedocumented in this encounter Care Teams Multiple Games Dealer Relationship Specialty [place] [address] [place] [address] PCP - General Family Practice 06/22/23 documented as of this encounter
--- OUTSIDE RECORDS SUMMARY | 2024-12-17 16:34 | XMS_ITS | Clinical Summary ---
Author Organization [facility] Address [address] [place] [address] Phone Care Team Providers Care Staffing Rn Name Role Phone Chico Perea MD Primary Care Provider [phone] Allergies Active Allergy Reactions Criticality Noted Date Comments Lisinopril Rash Low 06/13/2023 Medications albuterol (PROVENTIL,VENTOL IN) 2.5 mg /3 mL (0.083 %) Solution for Nebulization Take 2.5 mg by inhalation every 6 hours as needed. 3 Active amLODIPine (NORVASC) 2.5 mg tablet Take 2.5 mg by mouth. 3 Active aspirin (ECOTRIN EC) 81 mg Tablet, Delayed Release (E.C.) Take 81 mg by mouth daily. 2 Active celecoxib (CeleBREX) 200 mg capsule Take 200 mg by mouth daily. 1 Active estradioL (ESTRACE) 2 mg tablet TAKE 1 TABLET BY MOUTH ONCE DAILY. INSERT 1 TABLET VAGINALLY ONCE A WEEK AT BEDTIME DIRECTED 3 Active fluticasone propion-salmetero L (ADVAIR DISKUS,WIXELA INHUB) 250-50 mcg/dose disk inhaler Take 1 Puff by inhalation 2 times daily. 3 Active ketoconazole (NIZORAL) 2 % Cream Apply to affected area daily. 3 Active naproxen sodium (ALEVE) 220 mg Tablet Take 220 mg by mouth 2 times daily as needed. Active nitroglycerin (NITROSTAT) 0.4 mg Tablet, Sublingual Place 0.4 mg under tongue every 5 minutes as needed. 2 Active traMADoL (ULTRAM) 50 mg tablet Take 50 mg by mouth. 3 Active Family History Medical History Relation Name Comments Diabetes Brother Heart Disease Brother Liver Disease Brother Heart Disease Father Hypertension Father Other Father Diabetes Mother Breast Cancer Sister Diabetes Son Relation Name Status Comments Brother Father Mother Sister Son Social History Tobacco Use Types Packs/Day Years Used Date Smoking Tobacco: Former Cigarettes Smokeless Tobacco: Never Tobacco Cessation:Counseling Given: Not Answered Alcohol Use Standard Drinks/Week Comments Not Currently 0 (1 standard drink = 0.6 oz pur e alcohol) Comments Unknown Sex and Gender Information Value Date Recorded Sex Assigned at Not on file Legal Sex Female 10:36 AM CDT Gender Identity Not on file Sexual Orientation Not on file Last Filed Vital Signs Vital Sign Reading Time Taken Comments Blood Pressure 178/91 07/24/2023 7:00 AM 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 Pulse 72 07/24/2023 7:00 AM 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 Temperature 36.3 C (97.4 F) 07/24/2023 7:00 AM 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 Respiratory Rate 18 07/24/2023 7:00 AM 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 Oxygen Saturation - - Inhaled Oxygen Concentration - - Weight 86.5 kg (190 lb 12.8 oz) 07/24/2023 7:00 AM 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 Height 152.4 cm (5') 06/13/2023 8:00 AM 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 Body Mass Index 37.26 06/13/2023 8:00 AM 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 Plan of Treatment Health Maintenance Due Date Last Done Comments BREAST CANCER SCREENING 1997 COLORECTAL SCREENING 2002 Colorectal Cancer Screening 2002 FIT-DNA Q 3 years 2002 FIT/FOBT Q 1 year 2002 Flex Sig/CT Colonography Q 5 years 2002 ZOSTER VACCINE (1 of 2) 2007 RSV VACCINE (60+ or ) (1 - Risk 60-74 years 1-dose series) 2017 PNEUMOCOCCAL VACCINE 50+ YEARS (2 of 2 - PCV) 10/17/19 21 10/17/2019 INFLUENZA VACCINE (#1) 2024 COVID-19 Vaccine (2 - season) 2024 OSTEOPOROSIS SCREENING 09/10/2024 09/10/2019 DTAP/TDAP/TD VACCINES (2 - Td or Tdap) 05/10/2026 Insurance MEDICARE PART A AND B [employer] MEDICARE SUPP AESSI Care Teams Staffing Rn Relationship Specialty Start Date End Date Chico Perea MD [address] [place] [id number] PCP - General Internal Medicine 01/15/15
--- OUTSIDE RECORDS SUMMARY | 2024-12-17 16:34 | XMS_ITS | Continuity of Care Document ---
Author Organization Formerly [facility]. 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 Name Role Phone Unavailable Unavailable Unavailable Unavailable Unavailable Unavailable Unavailable Unavailable Unavailable Unavailable Unavailable Unavailable Unavailable Unavailable Unavailable Unavailable Unavailable Unavailable Unavailable Unavailable Unavailable Unavailable Unavailable Unavailable Unavailable Unavailable Unavailable Unavailable Unavailable Unavailable Unavailable Unavailable Unavailable Unavailable Unavailable Unavailable Problems Swelling of lower limb Onset:25-Apr-2024 ZEPRUT Lymphedema Onset:24-Apr-2024 Balson Crystal A APRNNP Allergies and Adverse Reactions lisinopril(Allergy) Onset: 24-Apr-2024 Reaction:HEADACHE morphine(Allergy) Onset: 24-Apr-2024 Reaction:SPACED OUT Medications albuterol 0.83 MG/ML Inhalation Solution;2.5 MG RTONCE Quantity:1 Kvng Lawson MD Start:15-Cte-5047Lus:2023 Comments:[id number] Administration Instructions:PER RESP THERAPY 10 ML sodium chloride 9 MG/ML Prefilled Syringe;10 ML X1ED - NOVEMBER REPEAT Quantity:1 ZEPRUT Start:1-Uby-6997Lwg:25-Apr-20 Comments:[id number] Administration Instructions:Flush before after IV med administration 4 ML furosemide 10 MG/ML Injection;40 MG X1ED Quantity:1 ZEPRUT Start:6-Pln-4745Swl:25-Apr-20 Comments:[id number] Administration Instructions:Administer doses < 120 mg at a rate of 20-40 mg/min acetaminophen 500 MG Oral Tablet;1000 MG X1ED Quantity:2 Balson Crystal A APRNNP Start:4-Gcv-6714Ick:24-Apr-2024 Comments:[id number] 10 ML sodium chloride 9 MG/ML Prefilled Syringe;10 ML X1 - NOVEMBER REPEAT Quantity:1 Duglas López APRNNP Start:7-Aec-4926Uia:24-Apr-2024 Status:Discontinued Comments:[id number] Administration Instructions:Flush before after IV med administration Procedures - Chest PA and Lateral ViewsResult:[facility] Name: ANJALI WITT [address] [facility] Phys: [place] [address] : 1955 Age: 68 Sex: F Acct: [id number] Loc: BA.RT Phone #: [phone] Exam Date: 05/05/2024 Status: REG CLI Fax #: [phone] Radiology No: Unit No: [id number] Exams: [id number] Chest PA and Lateral ViewsChest PA and Lateral ViewsCLINICAL HISTORY: 68 years old Female with stated history of COPDOrdering physician:Renny Calderon M.D.COMPARISON: Chest radiograph AprilINDINGS: No acute radiographic cardiopulmonary disease. Bones are withinnormallimits for age.IMPRESSION: No acute findings.Signed on 05/05/2024 3:07 PM by Jadon Vicente M.D. Reported by: Jadon Vicente M.D.CC: Technologist: Transcribed Date/Time: 05/05/2024 (1507)Tax Services Intern: TRANSPrinted Date/Time: 05/05/2024 (1509) Batch No: N/A PAGE 1 Draft Report Date:05-May-2024 - US Doppler Low Ext Vein BilResult:[facility] Name: ANJALI WITT [address] Phys: Sekou Rubio, [place] [address] : 1955 Age: 68 Sex: F Acct: [id number] Loc: BA.ER Phone #: [phone] Exam Date: 04/25/2024 Status: REG ER Fax #: [phone] Radiology No: Unit No: [id number] Exams: [id number] US Doppler Low Ext Vein BilULTRASOUND LOWER EXTREMITY VEINS DOPPLER BILATERALDATE: 04/25/2024HISTORY: BLE swelling and pain.TECHNIQUE: Ultrasound of the right and left lower extremity veins performed pert Doppler protocol.COMPARISON: None available.FINDINGS:Right: The common femoral, femoral and popliteal veins demonstrate normalvenouswaveforms and normal compressibility. No evidence for deep vein thrombosis.Left: The common femoral, femoral and popliteal veins demonstrate normal venouswaveforms and normal compressibility. No evidence for deep vein thrombosis.IMPRESSION:No evidence for deep venous thrombosis.Signed on 04/25/2024 7:18 PM by Melba Villarreal M.D. at 1919 Reported and Signed by: MELBA VOGEL M.D.CC: Technologist: Transcribed Date/Time: 04/25/2024 (1917)Tax Services Intern: TRANSPrinted Date/Time: 04/25/2024 (1919) Batch No: N/A PAGE 1 Signed Report Date:25-Apr-2024 Status:Completed - Chest 1 ViewResult:[facility] Name: ANJALI WITT [address] [facility] Phys: [place] [address] : 1955 Age: 68 Sex: F Acct: [id number] Loc: [facility] Phone #: [phone] Exam Date: 04/25/2024 Status: PRE ER Fax #: [phone] Radiology No: Unit No: [id number] Exams: [id number] Chest 1 ViewXR CHEST 1 VIEWDATE: 04/25/2024HISTORY: Leg swelling and SOBTECHNIQUE: 1 view of the chest is reviewed.COMPARISON: Chest radiograph 04/24/2024FINDINGS:The lungs are clear. No pleural effusion or pneumothorax. Cardiomediastinalstructures are unremarkable.IMPRESSION:No acute cardiopulmonary process.Signed on 04/25/2024 3:56 PM by Hannah Giron M.D. at 1558 Reported and Signed by: Hannah Giron M.D.CC: Technologist: Transcribed Date/Time: 04/25/2024 (1556)Tax Services Intern: TRANSPrinted Date/Time: 04/25/2024 (1559) Batch No: N/A PAGE 1 Signed Report Date:25-Apr-2024 Status:Completed - Chest 1 ViewResult:[facility] Name: ANJALI WITT [address] Phys: [place] [address] : 1955 Age: 68 Sex: F Acct: [id number] Loc: . Phone #: [phone] Exam Date: 04/24/2024 Status: PRE ER Fax #: [phone] Radiology No: Unit No: [id number] Exams: [id number] Chest 1 ViewXR CHEST 1 VIEWDATE: 04/24/2024HISTORY: lower ext swellingTECHNIQUE: 1 view of the chest is reviewed.COMPARISON: NoneFINDINGS:The lungs show no focal consolidation or overt pulmonary edema. No pleuraleffusion. No pneumothorax. Cardiomediastinal structures are unremarkable.IMPRESSION:No acute cardiopulmonary process.Signed on 04/24/2024 4:27 PM by Akira Rene D.O. at 1629 Reported and Signed by: Akira Rene D.O.CC: Technologist: Transcribed Date/Time: 04/24/2024 (1627)Tax Services Intern: TRANSPrinted Date/Time: 04/24/2024 (1630) Batch No: N/A PAGE 1 Signed Report Date:24-Apr-2024 Status:Completed - US Pelvis CompleteResult:[facility] Name: ANJALI WITT [address] Phys: AlexisAnastasiia [facility] [place] [address] : 1955 Age: 68 Sex: F Acct: [id number] Loc: BA.RAD Phone #: [phone] Exam Date: 01/14/2024 Status: REG CLI Fax #: [phone] Radiology No: Unit No: [id number] Exams: [id number] US Pelvis CompleteULTRASOUND PELVISDATE: 01/14/2024HISTORY: RLQ ABDOMINAL PAINTECHNIQUE: Ultrasound of the pelvis performed per the routine protocol using atransabdominal and transvaginal probe.COMPARISON: NoneFINDINGS:Prior hysterectomy and bilateral oophorectomy. Gas filled bowel throughout thepelvis. Images at site of patient complaint of pain in the right and left lowerquadrants demonstrate no focal mass lesion or abnormal fluid collection.Bladderappears normal.IMPRESSION:Normal appearance status post hysterectomy.Signed on 01/14/2024 3:58 PM by Alton Byrne M.D. at 1601 Reported and Signed by: Alton Byrne M.D.CC: Technologist: Transcribed Date/Time: 01/14/2024 (1558)Tax Services Intern: TRANSPrinted Date/Time: 01/14/2024 (1604) Batch No: N/A PAGE 1 Signed Report Date:14-Jan-2024 Status:Completed Social History Smoking Status Never smoked tobacco Recorded: 25-Apr-2024 Never smoked tobacco Recorded: 24-Apr-2024 Results ARTERIAL BLOOD GAS W COOX Ordered On:05-May-2024 Comments:Frequency:: Once 05-May-2024 13:32 MODIFIED ALLENS TESTPOSITIVE ARTERIAL BLOOD GAS B ASE VOILYY9naii/L(High) Range:-2mmol/L-2mmol/L CARBOXYHEMOGLOBIN1.4 %(Normal ) Range:0.5%-1.5% ARTERIAL BLOOD GAS HSP681.0% ARTERIAL BLOOD GAS T OTAL BDL827{mEq/L}(High) Range:22{mEq/L}-26{mEq/L} HEMATOCRIT RT38%(Normal) Range:3 6%-50% O2Hb96.3%(Normal) Range:94%-100% ARTERIAL BLOOD GAS L/M0{L/MIN} METHEMOGLOBIN1.3%(Normal) Range: 0.4%-1.5% ARTERIAL BLOOD GAS SUT265.0{mmHg}(Normal) Range:35{mmHg}-45{mmHg} ARTERIAL BLOOD GAS pH7.48{mmHg}(High) Range:7.35{mmHg}-7.45{mmHg} ARTERIAL BLOOD GAS PO281{mmHg}(Normal) Range:80{mmHg}-100{mmHg} ABG O2 SAT OFUERUCF05%(Normal) Range:93%-100% ARTERIAL BLOOD GAS S ITERIGHT RADIAL ARTERIAL BLOOD GAS TEMP37.0C TOTAL HGB12.6g/dL(Normal) Range: 12g/dL-18g/dL URINALYSIS REFLEX CULT IF POS Ordered On:25-Apr-2024 Comments:Indication for cult ure: Suprapubic Pain 25-Apr-2024 16:58 UA APPEARANCECLEAR Range:CLEAR UA BILIRUBIN DIPSTICKNegativemg/dL Range:Negative mg/dL UA BLOOD DIPSTICKNegativemg/dL(Normal ) Range:Negative mg/dL UA COLORLIGHT YELLOW Range:YEL/S TRAW UA GLUCOSE DIPSTICKNegativemg/dL Range:Negative mg/dL KETONE DIPSTICK URNegativemg/dL Range:Negative mg/dL UA LEUKOCYTE ESTERAS E DIPSTICKNegative{Leuk/uL}(No rmal) Range:Negative Leuk/uL UA NITRITE DIPSTICKNegative Rang e:Negative PH DIPSTICK UR6.0 Range:5-8 UA PROTEIN DIPSTICKNegativemg/dL(Normal ) Range:Negative mg/dL SPECIFIC GRAVITY UR<1.005(Low) Range:1.005-1.03 SOURCE DESCRIPTIONCL JESSICA CATCH UROBILINOGEN DIPSTIC K URNormalmg/dL Range:Normal mg/dL CBC WITH DIFF Ordered On:25-Apr-2024 16:30 BASOPHIL #0.0K/uL(Normal) Range :0K/uL-0.1K/uL BASOPHIL %0.5%(Normal) Range:0%- 2% EOSINOPHIL #0.1K/uL(Normal) Rang e:0K/uL-0.2K/uL EOSINOPHIL %1.8%(Normal) Range:0 .9%-2.9% NEUT #3.8K/uL(Normal) Range:1.5K /uL-7.8K/uL NEUT %62.4%(Normal) Range:43%-65 % ZAKZFIBWJX64.5%(Normal) Range:34 %-44% LLGAJWHCJS37.3g/dL(Normal) Range :11.5g/dL-15g/dL IMM GRAN #0.01K/uL(Normal) Range :0K/uL-0.05K/uL IMM GRAN %0.2%(Normal) Range:0%- 0.7% Comments:Immature granulocytes include: metamyelocytes, myelocytesand progranulocytes but not band forms. LYMPHOCYTE #1.6K/uL(Normal) Rang e:1.3K/uL-2.9K/uL LYMPHOCYTE %25.9%(Normal) Range: 20.5%-51.1% MEAN CELL HGB30.4pg(Normal) Rang e:27pg-31pg MEAN CELL HGB VEFQWOVEOIPUD36.8g/dL(Low) Range:33g/dL-37g/dL MEAN CELL AJLCUH10.8fL(High) Ran ge:81fL-91fL ADD MANUAL DIFFERENTIALNO MONOCYTE #0.6K/uL(Normal) Range: 0.3K/uL-0.8K/uL MONOCYTE %9.2%(Normal) Range:5.5 %-11.7% MEAN PLATELET NWBDEJ89.1fL(Normal) Range:7.4fL-10.4fL NRBC VJMBALED2G/uL Range:0 K/uL NRBC%0%(Normal) Range:0%-0% PLATELET VBWDE168E/uL(Normal) Range:130K/uL-400K/uL RED BLOOD CELL4.04{M/uL}(Low) Range:4.2{M/uL}-6.1{M/uL} RDW13.3%(Normal) Range:11.5%-14. 5% WHITE BLOOD CELL COUNT6.1K/uL(Normal) Range:4.8K/uL-10.8K/uL COMPREHENSIVE METABOLIC PANEL Ordered On:25-Apr-2024 16:39 ALBUMIN3.4g/dL(Normal) Range:3. 4g/dL-5g/dL ALKALINE PHOSPHATASE TOTAL88{Units/L}(Normal) Range:46{Units/L}-116{Units/L} SGPT/ALT24{Units/L}(Normal) Rang e:14{Units/L}-59{Units/L} SGOT/AST24{Units/L}(Normal) Rang e:15{Units/L}-37{Units/L} BILIRUBIN TOTAL0.3mg/dL(Normal) Range:0.2mg/dL-1mg/dL BUN/CREATININE RATIO12 BLOOD UREA MXIEJWPL0ca/dL(Normal) Range:7mg/dL-18mg/dL CALCIUM9.2mg/dL(Normal) Range:8. 5mg/dL-10.1mg/dL PKKGTOOA702ixxv/L(Normal) Range: 98mmol/L-107mmol/L CARBON VYXAXDM12xsrp/L(Normal) Range:20mmol/L-32mmol/L CREATININE0.60mg/dL(Normal) Rang e:0.55mg/dL-1.02mg/dL ANION GAP11{mEq/L}(Normal) Range :8{mEq/L}-12{mEq/L} GFR CALCULATED>60(Normal) Range: 60-0 Comments:Beginning 01/31/22 [facility] will be using thenewest eGFR equation recommended by the National KidneyFoundation-[place] Society of Nephrology Task Force onReassessing the Inclusion of Race in Diagnosing KidneyDisease.A patient's race will no longer be included in thecalculation of the eGFR or appear on the patient'slaboratory report. TWCGMUC476un/dL(High) Range:70mg /dL-99mg/dL POTASSIUM3.5mmol/L(Normal) Range :3.5mmol/L-5.1mmol/L TVYNVA184jbgm/L(Normal) Range:13 6mmol/L-145mmol/L TOTAL PROTEIN6.9g/dL(Normal) Ran ge:6.4g/dL-8.2g/dL PHOSPHORUS Ordered On:25-Apr-2024 16:39 PHOSPHORUS3.5mg/dL(Normal) Rang e:2.5mg/dL-4.9mg/dL LIPASE Ordered On:25-Apr-2024 16:39 FUKLOZ80D/L(Low) Range:16U/L-77 U/L Comments:Note: New Reference Ranges MAGNESIUM Ordered On:25-Apr-2024 16:39 MAGNESIUM1.6mg/dL(Low) Range:1. 8mg/dL-2.4mg/dL TROPONIN I HIGH SENSITIVITY Ordered On:25-Apr-2024 16:39 TROPONIN I HIGH VHJQIIYTLSX8fr/L(Normal) Range:0ng/L-50ng/L Comments:In order to distinguish acute elevations of high sensitiveTroponin from other clinical conditions, the UniversalDefinition of myocardial infarction stresses clinicalassessment and the need for serial measurements to observe arise and/or a fall above the upper limit of the referencerange.Consideration for cardiology evaluation and drawing thirdhs-cTn, including if change in the clinical status or serialhs-cTns are increasing, particularly above the 99thgender-specific percentile. PROTHROMBIN TIME Ordered On:25-Apr-2024 16:36 INTERNATIONAL NORMAL RATIO1.2(Normal) Range:0.8-1.2 Comments:Suggested INR therapeutic guidelines for stabilizedpatients;Most clinical situations: 2.0 - 3.0Mechanical heart valve, recurrent thrombosis on therapy:2.5 - 3.5 PROTHROMBIN TIME ATMLUGV08.1{SECONDS}(Normal) Range:9.4{SECONDS}-12.5{SECONDS} PTT ACTIVATED Ordered On:25-Apr-2024 16:36 PTT IQDHVCAEZ66.2{SECONDS}(Viky l) Range:25.1{SECONDS}-36.5{SECONDS } B-TYPE NATRIURETIC PEPTIDE Ordered On:25-Apr-2024 16:45 B-TYPE NATRIURETIC ZVUHTTQ00ma/mL(Normal) Range:1pg/mL-100pg/mL AMMONIA Ordered On:25-Apr-2024 17:20 AMMONIA<10umol/L(Low) Range:11u mol/L-32umol/L CBC W/O DIFF Ordered On:24-Apr-2024 16:14 CGNAMQZQYJ27.9%(Normal) Range:3 4%-44% JMPRYTHXKP69.1g/dL(Normal) Range :11.5g/dL-15g/dL MEAN CELL HGB29.7pg(Normal) Rang e:27pg-31pg MEAN CELL HGB EKMVPVGSOIVCF32.9g/dL(Low) Range:33g/dL-37g/dL MEAN CELL PBFVPX11.9fL(High) Ran ge:81fL-91fL MEAN PLATELET YMUJDG72.3fL(Normal) Range:7.4fL-10.4fL NRBC JPKLTANQ2G/uL Range:0 K/uL NRBC%0%(Normal) Range:0%-0% PLATELET YZUWT636Y/uL(Normal) Range:130K/uL-400K/uL RED BLOOD CELL4.08{M/uL}(Low) Range:4.2{M/uL}-6.1{M/uL} RDW13.4%(Normal) Range:11.5%-14. 5% WHITE BLOOD CELL COUNT6.7K/uL(Normal) Range:4.8K/uL-10.8K/uL COMPREHENSIVE METABOLIC PANEL Ordered On:24-Apr-2024 16:38 ALBUMIN3.5g/dL(Normal) Range:3. 4g/dL-5g/dL ALKALINE PHOSPHATASE TOTAL93{Units/L}(Normal) Range:46{Units/L}-116{Units/L} SGPT/ALT20{Units/L}(Normal) Rang e:14{Units/L}-59{Units/L} SGOT/AST22{Units/L}(Normal) Rang e:15{Units/L}-37{Units/L} BILIRUBIN TOTAL0.4mg/dL(Normal) Range:0.2mg/dL-1mg/dL BUN/CREATININE RATIO19 BLOOD UREA MBVXIFGL96hk/dL(Normal) Range:7mg/dL-18mg/dL CALCIUM9.4mg/dL(Normal) Range:8. 5mg/dL-10.1mg/dL IINAWQMS316pmwr/L(Normal) Range: 98mmol/L-107mmol/L CARBON FOUZMHF28rfyl/L(Normal) Range:20mmol/L-32mmol/L CREATININE0.70mg/dL(Normal) Rang e:0.55mg/dL-1.02mg/dL ANION GAP13{mEq/L}(High) Range:8 {mEq/L}-12{mEq/L} GFR CALCULATED>60(Normal) Range: 60-0 Comments:Beginning 01/31/22 [facility] will be using thenewest eGFR equation recommended by the National KidneyFoundation-[place] Society of Nephrology Task Force onReassessing the Inclusion of Race in Diagnosing KidneyDisease.A patient's race will no longer be included in thecalculation of the eGFR or appear on the patient'slaboratory report. FJDKELI486wk/dL(High) Range:70mg /dL-99mg/dL POTASSIUM3.4mmol/L(Low) Range:3. 5mmol/L-5.1mmol/L WBIDPZ399bpep/L(Normal) Range:13 6mmol/L-145mmol/L TOTAL PROTEIN7.0g/dL(Normal) Ran ge:6.4g/dL-8.2g/dL TROPONIN I HIGH SENSITIVITY Ordered On:24-Apr-2024 16:38 TROPONIN I HIGH XFWIAJIEKPK4fx/L(Normal) Range:0ng/L-50ng/L Comments:In order to distinguish acute elevations of high sensitiveTroponin from other clinical conditions, the UniversalDefinition of myocardial infarction stresses clinicalassessment and the need for serial measurements to observe arise and/or a fall above the upper limit of the referencerange.Consideration for cardiology evaluation and drawing thirdhs-cTn, including if change in the clinical status or serialhs-cTns are increasing, particularly above the 99thgender-specific percentile. B-TYPE NATRIURETIC PEPTIDE Ordered On:24-Apr-2024 16:56 B-TYPE NATRIURETIC PEPTIDE<15pg/mL(Normal) Range:1pg/mL-100pg/mL Vital Signs 25-Apr-2024 18:00 Pulse70 Comments:70 O2 SAT95 Comments:95 BP Aeziamus039fm[Hg] Comments:17 2 BP Dyhggdhvz04id[Hg] Comments:79 25-Apr-2024 17:30 Pulse70 Comments:70 O2 SAT98 Comments:98 BP Kxvkewyh134cz[Hg] Comments:18 5 BP Tdsgxaexv49qi[Hg] Comments:80 25-Apr-2024 17:28 Pulse76 Comments:76 O2 SAT99 Comments:99 BP Hpxlbbaw151bi[Hg] Comments:20 5 BP Kxngzgdly64if[Hg] Comments:86 25-Apr-2024 15:07 Ajsxhlgmhwo69.9c Comments:36.9 Pulse75 Comments:75 Respiratory Rate18 Comments:18 O2 SAT99 Comments:99 BP Lemfnkca812zl[Hg] Comments:15 5 BP Hazuovsap64kr[Hg] Comments:82 Height4.3812755[ft_us] Comments: 4 Gpnkbs49.273kg Comments:82.273 25-Apr-2024 15:07 BMI36.6kg/m2 Comments:36.6 24-Apr-2024 17:28 Pulse72 Comments:72 Respiratory Rate18 Comments:18 O2 SAT99 Comments:99 BP Xylqvzgt723ua[Hg] Comments:18 8 BP Jvtfbondx46zj[Hg] Comments:82 24-Apr-2024 15:50 Slflqjxubjk90.5f Comments:98.5 Pulse75 Comments:75 Respiratory Rate18 Comments:18 O2 SAT99 Comments:99 BP Uqndmkzn010eq[Hg] Comments:17 9 BP Zyhgcnyvy11oi[Hg] Comments:76 Height4.7561252[ft_us] Comments: 4 Jpjyxd05.273kg Comments:82.273 24-Apr-2024 15:50 BMI36.6kg/m2 Comments:36.6 Encounters Ambulatory Encounter Reason:PFT Encounter Diagnosis:Chronic obstructive pulmonary disease, unspecified 05-May-2024 13:92Ww94-Lun-3703 13:00 [facility] Discharge Disposition:Discharged to home or self care (routine discharge) Emergency Encounter Reason:BLE SWELLING Encounter Diagnosis:Essential (primary) hypertension,Other specified soft tissue disorders 25-Apr-2024 15:25Ok9-Obp-2499 20:00 Lane Mendez MD (Attending) [facility] Discharge Disposition:Discharged to home or self care (routine discharge) BFNUGN-9-Cje-2024 [facility] ([facility])EMERGENCY PROVIDER REPORTREPORT#: [id number] REPORT STATUS: SignedDATE:04/25/24 TIME: 1930PATIENT: ANJALI WITT UNIT #: [id number]#: [id number] ROOM #: BED:: 57 AGE: 68 SEX: F PCP PHYS: Anastasiia Alexis [facility] AUTHOR: Sekou Rubio PARPT SRV RPT SRV TM: 1503* ALL edits or amendments must be made on the electronic/computer document *ELINORSEKOU Masha HERZOG 04/25/24 1930:HPI-Extremity Prob LowerFree Text HPI NotesFree Text HPI Fczxl91-yezz-dvx female who was sent to the ER by her primary care provider's officedue to having bilateral lower extremity swelling for about the lower two thirdsof her lower leg. Patient does have some minimal swelling in the feet but notas significant is in the lower legs. The swelling is 1+ pitting edema withtenderness but negative tenderness to the calfs or Faisal signs. Patient isneurovasc intact throughout lower extremities. Per the doctor's office thepatient being worked up for CHF but does not have a history of CHF that was onLasix but was taken off that due to hypokalemia at 1 point. Patient has triedcompression hose as well but states that the pain in the legs is keeping herfrom oriented at this point.GeneralConfirmed Patient YesPatient Type New patientInitial Greet Date/Time 04/25/24 1503PresentationChief Complaint Leg problem R, Leg problem LHx Obtained From Patient, Primary care providerContextImmunization Status General UnknownRecent Healthcare Recent doctor visit, Recent testing, Prior workupSimilar Sx Previous YesRisk-Extremity Prob LowerRisk StratificationWell's Criteria for DVT Well's Criteria for DVT Response Value Active Cancer? No 0 Immob Lower Extremity? No 0 Bed >3 Days/Surg Last 4 Weeks? No 0 Local Tend Deep Venous Sys? Yes 1 Entire Leg Swollen? No 0 Calf Swelling >3cm? Yes 1 Pit Edema in Symptomatic Leg? Yes 1 Collat Superficial Veins? No 0 Previous Documented DVT? No 0 Total 3Well's DVT Score >1, high risk for DVT Alternative Dx to DVT LikelyI believe an alternative diagnosis to be at least as likely as DVT. Therefore,following the Wells Criteria for DVT, my calculated score should be reduced by 2points. This is reflected in the Wells DVT Score I have assigned.Review of SystemsROS StatementsAll systems rev neg except as marked.Focused Review of SystemsMusculoskeletalReports: Extremity pain, Extremity swelling.Past Medical History - AdultStated Complaint BLE SWELLINGAllergiesCoded Allergies:lisinopril (HEADACHE 04/24/24)morphine (SPACED OUT 04/24/24)Review of Nursing Notes Rev avail, and agreePt reports no significant: Past surgical history, Family historyAdditional Medical HistoryHTN, LymphedemaSmoking status for patients 13 years old or older: Never SmokerAmbulatory Status IndependentPhysical ExamVital SignsVital SignsFirst Documented: Result Date Time Pulse Ox 99 04/25 1507 B/P 155/82 04/25 1507 B/P Mean 106 04/25 1507 Temp 98.4 04/25 150 Pulse 75 04/25 1507 Resp 18 04/25 1507Last Documented: Result Date Time Pulse Ox 95 04/25 1800 B/P 172/79 04/25 1800 B/P Mean 114 04/25 1800 Pulse 70 04/25 1800 Temp 98.4 04/25 1507 Resp 18 04/25 150Review of Vital Signs ReviewedBasic Physical ExamBasic PE GEN: Well appearing/NAD, HEAD: Atraumatic/NC, EYES: PERRL, conj clear,ENT: Membranes moist, NECK: Supple, RESP: No resp distress, CV: Reg raterhythm, ABD: Soft/non-tender, UP EXT: No gross abnormal, SKIN: No rashes, warm/dry, NEURO: alert oriented, NEURO: gross movement NL, PSYCH: NL thoughtcontentFocused PEMS Lower Extrem Right Leg/Calf Swelling present, Tenderness present. Negative: Ecchymosis present, Erythemapresent, Warmth present, R calf > L calf, L calf > R calf, Faisal's sign positive, Deformity proximal, Deformity middle, Deformity distal, Open fracture present,Pulses distal absent, Pulses distal decreased, Neuro deficit present. Left Leg/Calf Swelling present, Tenderness present. Negative: Ecchymosis present, Erythemapresent, Warmth present, R calf > L calf, L calf > R calf, Faisal's sign positive, Deformity proximal, Deformity middle, Deformity distal, Open fracture present,Pulses distal absent, Pulses distal decreased, Neuro deficit present.MS Ankle/Foot Ankle/Foot Atraumatic, Inspection NL, Full range of motion, No erythema, Non-tender, No deformity, Neurologic intact, Vascular intact, No ligamentous injury,Tendon function NL, No compartment syndrome, No circumferential injury, No edema, Gait NL Right Ankle Swelling present. Negative: Tenderness present, Tender lat ligaments, Tendermedial ligaments, Tender lateral malleolus, Tender medial malleolus, Ecchymosispresent, Erythema present, Warmth present, ROM reduced, Joint effusion present,Achilles deficit, Anterior drawer test pos, Deformity present, Open fracturepresent, Pulse post tib absent, Pulse post tib decreased, Neuro deficit present. Left Ankle Swelling present. Negative: Tenderness present, Tender lat ligaments, Tendermedial ligaments, Tender lateral malleolus, Tender medial malleolus, Ecchymosispresent, Erythema present, Warmth present, ROM reduced, Joint effusion present,Achilles deficit, Anterior drawer test pos, Deformity present, Open fracturepresent, Pulse post tib absent, Pulse post tib decreased, Neuro deficit present. Right Foot Swelling present. Negative: Tenderness present, Tender base 5th mtarsal,Tender calcaneus, Tender plantar fascia, Ecchymosis present, Erythema present,Warmth present, ROM reduced, Joint effusion present, Tendon injury extensor,Tendon injury flexor, Deformity present, Open fracture present, Pulse dorsalisped absent, Pulse dors ped decreased, Neuro deficit present, Amputation. Left Foot Swelling present. Negative: Tenderness present, Tender base 5th mtarsal,Tender calcaneus, Tender plantar fascia, Ecchymosis present, Erythema present,Warmth present, ROM reduced, Joint effusion present, Tendon injury extensor,Tendon injury flexor, Deformity present, Open fracture present, Pulse dorsalisped absent, Pulse dors ped decreased, Neuro deficit present, Amputation.Interpretation DiagnosticsLab Results InterpretationConsiderations Independ review imagingResultsLaboratory Tests04/25/24 1609:[Embedded Image Not Available]Laboratory Tests: 04/25 04/25 04/25 04/25 1651 1609 1609 1609Chemistry Sodium (136 - 145 mmol/L) 141 Potassium (3.5 - 5.1 mmol/L) 3.5 Chloride (98 - 107 mmol/L) 104 Carbon Dioxide (20 - 32 mmol/L) 30 Anion Gap (8 - 12 mEq/L) 11 BUN (7 - 18 mg/dL) 7 Creatinine (0.55 - 1.02 mg/dL) 0.60 Est GFR (CKD-EPI 2020) (>60) >60 BUN/Creatinine Ratio 12 Glucose (70 - 99 mg/dL) 100 H Calcium (8.5 - 10.1 mg/dL) 9.2 Phosphorus (2.5 - 4.9 mg/dL) 3.5 Magnesium (1.8 - 2.4 mg/dL) 1.6 L Total Bilirubin (0.2 - 1.0 mg/dL) 0.3 AST (15 - 37 Units/L) 24 ALT (14 - 59 Units/L) 24 Total Alk Phosphatase (46 - 116 Units/L) 88 Ammonia (11 - 32 umol/L) <10 L Troponin I High Sens (0 - 50 ng/L) 5 B-Natriuretic Peptide (1 - 100 pg/mL) 17 Total Protein (6.4 - 8.2 g/dL) 6.9 Albumin (3.4 - 5.0 g/dL) 3.4 Lipase (16 - 77 U/L) 11 LCoagulation PT (9.4 - 12.5 SECONDS) 12.1 INR (0.8 - 1.2) 1.2 APTT (25.1 - 36.5 SECONDS) 33.2Hematology WBC (4.8 - 10.8 K/uL) 6.1 RBC (4.20 - 6.10 M/uL) 4.04 L Hgb (11.5 - 15.0 g/dL) 12.3 Hct (34.0 - 44.0 %) 37.5 MCV (81.0 - 91.0 fL) 92.8 H MCH (27.0 - 31.0 pg) 30.4 MCHC (33.0 - 37.0 g/dL) 32.8 L RDW Coeff of Dena (11.5 - 14.5 %) 13.3 Plt Count (130 - 400 K/uL) 282 MPV (7.4 - 10.4 fl) 10.1 Immature Gran % (Auto) (0 - 0.7 %) 0.2 Neut % (Auto) (43.0 - 65.0 %) 62.4 Lymph % (Auto) (20.5 - 51.1 %) 25.9 Grand % (Auto) (5.5 - 11.7 %) 9.2 Eos % (Auto) (0.9 - 2.9 %) 1.8 Baso % (Auto) (0.0 - 2.0 %) 0.5 Neut # (Auto) (1.5 - 7.8 K/uL) 3.8 Lymph # (Auto) (1.3 - 2.9 K/uL) 1.6 Grand # (Auto) (0.3 - 0.8 K/uL) 0.6 Eos # (Auto) (0.0 - 0.2 K/uL) 0.1 Baso # (Auto) (0.0 - 0.1 K/uL) 0.0 Immature Gran # (Auto) (0.00 - 0.05 0.01K/uL) Add Manual Diff NO Nucleated RBC % (0 - 0 %) 0 Nucleated RBCs # (0 K/uL) 0Urines Urine Source CLEAN CATCH Urine Color (YEL/STRAW) LIGHT YELLOW Urine Appearance (CLEAR) CLEAR Urine pH (5.0 - 8.0) 6.0 Ur Specific [place] (1.005 - 1.030) <1.005 L Urine Protein (Negative mg/dL) Negative Urine Glucose (UA) (Negative mg/dL) Negative Urine Ketones (Negative mg/dL) Negative Urine Blood (Negative mg/dL) Negative Urine Nitrite (Negative) Negative Urine Bilirubin (Negative mg/dL) Negative Urobilinogen Dipstick (Normal mg/dL) Normal Ur Leukocyte Esterase (Negative Leuk/uL) NegativeRecent Impressions:RADIOLOGY - Chest 1 View 04/25 1558 Report Impression - Status: SIGNED Entered: 04/25/2024 1558IMPRESSION:No acute cardiopulmonary process.Signed on 04/25/2024 3:56 PM by Hannah Giron M.D.Impression By: Hannah Robbins M.D.ULTRASOUND - US Doppler Low Ext Vein Phil 04/25 1920 Report Impression - Status: SIGNED Entered: 04/25/2024 192IMPRESSION:No evidence for deep venous thrombosis.Signed on 04/25/2024 7:18 PM by Melba Villarreal M.D.Impression By: MELBA SHER M.D. Lab Imaging StatementLaboratory radiographic studies reviewed and considered in the medicaldecision-making.Re-Evaluation MDMED CourseMedication(s) OrderedMedication(s) Ordered:Electrolytic, Caloric, And Francia Sig/Milka Start time Last Medication Dose Route Stop Time Status Admin IV Flush 10 ML X1ED - MAY REPEAT .. 04/25 1530 DC IV 04/25 1928 Furosemide 40 MG X1ED STA 04/25 1529 DC 10/ IV 04/25 1530 1621Patient Discharge DepartureVital Signs/ConditionVital SignsFirst Documented: Result Date Time Pulse Ox 99 04/25 1507 B/P 155/82 04/25 1507 B/P Mean 106 04/25 1507 Temp 98.4 04/25 1507 Pulse 75 04/25 1507 Resp 18 04/25 1507Last Documented: Result Date Time Pulse Ox 95 04/25 1800 B/P 172/79 04/25 1800 B/P Mean 114 04/25 1800 Pulse 70 04/25 1800 Temp 98.4 04/25 1507 Resp 18 04/25 1507All vital signs available at the time of this entry have been reviewed.Condition ImprovedClinical ImpressionClinical ImpressionPrimary Impression: Swelling of lower extremityDisposition DecisionDischarge )( Discharged to Home Yes )( Time 1945 )( Date 04/25/24Discharge/Care PlanCounseled Regarding Diagnosis, Lab results, Imaging studies, Medication changes,Prescriptions, Need for follow-up, When to return to ED(Auto) PrescriptionsCurrent Visit ScriptsFurosemide (Lasix) 20 MG PO DAILY Furosemide (Lasix) 20 MG PO DAILY #30 TABPotassium Chloride (Klor-Con M20) 20 MEQ PO DAILY Potassium Chloride (Klor-Con M20) 20 MEQ PO DAILY #30 TABPrescriptions Reviewed Risks, Benefits, Alternative treatmentPatient Instructions ED Leg Swelling in Both Legs Discharge NoteI have spoken with the patient and/or caregivers. I have explained the patient'scondition, diagnoses and treatment plan based on the information available to meat this time. I have answered the patient's and/or caregiver's questions andaddressed any concerns. The patient and/or caregivers have as good anunderstanding of the patient's diagnosis, condition and treatment plan as can beexpected at this point. The vital signs have been stable. The patient'scondition is stable and appropriate for discharge from the emergency department.The patient will pursue further outpatient evaluation with the primary carephysician or other designated or consulting physician as outlined in thedischarge instructions. The patient and/or caregivers are agreeable to this planof care and follow-up instructions have been explained in detail. The patientand/or caregivers have received these instructions in written format and haveexpressed an understanding of the discharge instructions. The patient and/orcaregivers are aware that any significant change in condition or worsening ofsymptoms should prompt an immediate return to this or the closest emergencydepartment or a call to 911. Extremity Inj Discharge NoteThe patient is discharged home with supportive care, a plan for pain control,and follow-up instructions that detail what to expect over the next 48 hours andwhat symptoms should prompt immediate return to the ED, including the symptomsof compartment syndrome. Follow-up instructions have been explained in detail tothe patient, and the instructions have been provided in written format. Thepatient is comfortable with the plan of care and has expressed an understandingof the discharge instructions. The patient is aware that any significant changein condition or worsening of symptoms should prompt an immediate call to theprimary or designated physician. If that is not successful the patient shouldcall or return to this or the closest emergency department or call 911.Lela Sherman 04/27/242124:Patient Discharge DepartureDischarge/Care PlanReferralsProvider Referral: Anastasiia Alexis [facility] Address: [address], [place] [address]Aktfgdeprem Physician Note MidLv Saw Pt AloneI have reviewed the PA/SURFACE GRINDER's note and plan of care. I was available forconsultation as needed at all times during the patient's visit in the emergencydepartment. I agree with the clinical impression, plan and disposition. at 1951 at 2125RPT #: [id number] OF REPORT Emergency Encounter Reason:LEG SWELLING X 3 MONTHS Encounter Diagnosis:Essential (primary) hypertension,Lymphedema, not elsewhere classified 24-Apr-2024 15:[id number] 17:20 Aubrey Wilson MD (Attending) [facility] Discharge Disposition:Discharged to home or self care (routine discharge) Duglas López [id number] [facility] ([facility])EMERGENCY PROVIDER REPORTREPORT#: [id number] REPORT STATUS: SignedDATE:04/24/24 TIME: 1709PATIENT: ANJALI WITT UNIT #: [id number]#: [id number] ROOM #: BED:: 57 AGE: 68 SEX: F PCP PHYS: Anastasiia Alexis [facility] AUTHOR: DulgasSirisha Maribel APRNNPRPT SRV RPT SRV TM: 1605* ALL edits or amendments must be made on the electronic/computer document *SIRISHA HOWARD 04/24/24 1709:HPI-Extremity Prob LowerFree Text HPI NotesFree Text HPI NotesPatient is a 68-year-old female with history of lymphedema, and hypertension.Patient is coming in with concern of bilateral lower extremity edema. Patientreports swelling has gradually increased over the last 3 months. Patient statesshe was given compression hose by her primary care provider but does not wearthem. Patient denies any recent fever. Denies chest pain, shortness of breath.GeneralConfirmed Patient YesPatient Type New patientInitial Greet Date/Time 04/24/241556PresentationChief Complaint Leg problem R, Leg problem LHx Obtained From PatientOnset Occurred ChronicSymptom Duration Since onsetProgression since Onset Gradually worseningCaused by No trauma by historyPain/Sev: Current ModerateAssociated withDenies: Chest pain, Difficulty breathing, Fever.Exacerbated by NothingRelieved by NothingContextImmunization Status General All up to dateReview of SystemsFocused Review of SystemsConstitutionalDenies: Chills, Fatigue, Fever, Lethargy, Weakness - generalized.MusculoskeletalReports: Extremity swelling. Denies: Extremity pain.SkinDenies: Erythema.Past Medical History - AdultStated Complaint LEG SWELLING X 3 MONTHSAllergiesCoded Allergies:lisinopril (HEADACHE 04/24/24)morphine (SPACED OUT 04/24/24)Review of Nursing Notes Rev avail, and agreeAdditional Medical HistoryHTN, LymphedemaSmoking status for patients 13 years old or older: Never SmokerPhysical ExamVital SignsVital SignsFirst Documented: Result Date Time Pulse Ox 99 04/24 1550 B/P 179/76 04/24 1550 B/P Mean 110 04/24 1550 O2 Delivery Room air 04/24 1550 Temp 98.5 04/24 155 Pulse 75 04/24 155 Resp 18 04/24 155Last Documented: Result Date Time Pulse Ox 99 04/24 1728 B/P 188/82 04/24 1728 B/P Mean 117 04/24 1728 O2 Delivery Room air 04/24 1728 Pulse 72 04/24 1728 Resp 18 04/24 1728 Temp 98.5 04/24 155Review of Vital Signs ReviewedFocused PEGeneral/Const General/Const Awake, Alert, No acute distress, Well appearing, Well developed, Well hydrated, Well nourished, Cooperative, Not toxic appearingResp/Chest Respiratory/Chest Breath sounds NL, Breath sounds = bilat, No respiratorydistressCardiovascular Cardiovascular Heart rate NL, Regular rhythm, Heart sounds NLMS Lower Extrem Text/Dict NotesBilateral lower extremity pitting edema 2+. No erythema. Strong pedal pulsespalpated bilaterally.MS Ankle/Foot Ankle/Foot AtraumaticSkin Skin Color NL, No rash, Warm, Dry, IntactNeurologic Neurologic Oriented X3, Speech NL, No motor deficits, No sensory deficits,Memory NL, Gait NLInterpretation DiagnosticsLab Results InterpretationResultsLaboratory Tests04/24/24 1605:[Embedded Image Not Available]Laboratory Tests: 04/24 04/24 1605 1605 Chemistry Sodium (136 - 145 mmol/L) 145 Potassium (3.5 - 5.1 mmol/L) 3.4 L Chloride (98 - 107 mmol/L) 106 Carbon Dioxide (20 - 32 mmol/L) 29 Anion Gap (8 - 12 mEq/L) 13 H BUN (7 - 18 mg/dL) 13 Creatinine (0.55 - 1.02 mg/dL) 0.70 Est GFR (CKD-EPI 2020) (>60) >60 BUN/Creatinine Ratio 19 Glucose (70 - 99 mg/dL) 105 H Calcium (8.5 - 10.1 mg/dL) 9.4 Total Bilirubin (0.2 - 1.0 mg/dL) 0.4 AST (15 - 37 Units/L) 22 ALT (14 - 59 Units/L) 20 Total Alk Phosphatase (46 - 116 Units/L) 93 Troponin I High Sens (0 - 50 ng/L) 5 B-Natriuretic Peptide (1 - 100 pg/mL) <15 Total Protein (6.4 - 8.2 g/dL) 7.0 Albumin (3.4 - 5.0 g/dL) 3.5 Hematology WBC (4.8 - 10.8 K/uL) 6.7 RBC (4.20 - 6.10 M/uL) 4.08 L Hgb (11.5 - 15.0 g/dL) 12.1 Hct (34.0 - 44.0 %) 37.9 MCV (81.0 - 91.0 fL) 92.9 H MCH (27.0 - 31.0 pg) 29.7 MCHC (33.0 - 37.0 g/dL) 31.9 L RDW Coeff of Dena (11.5 - 14.5 %) 13.4 Plt Count (130 - 400 K/uL) 278 MPV (7.4 - 10.4 fl) 10.3 Nucleated RBC % (0 - 0 %) 0 Nucleated RBCs # (0 K/uL) 0Recent Impressions:RADIOLOGY - Chest 1 View 04/24 1629 Report Impression - Status: SIGNED Entered: 04/24/2024 1630IMPRESSION:No acute cardiopulmonary process.Signed on 04/24/2024 4:27 PM by Akira Rene D.O.Impression By: Akira Mello D.O. Lab Imaging StatementLaboratory radiographic studies reviewed and considered in the medicaldecision-making.ECG #1 InterpretationDate 04/24/24Time 1601Interpreted by and reviewed by me, ED physicianNL ECG Interpretation Normal rate, Normal sinus rhythm, No acute ischemicchanges, No STEMIRe-Evaluation MDMFree Text MDM NotesFree Text MDM NotesPatient CBC and chemistry are normal. Troponin is negative. BNP is normal.Chest x-ray is clear. EKG without ST elevation or depression. Patient hashistory of lymphedema and reports it has been worsening over the past 3 months.She is not wearing her compression stockings or elevating her legs like she issupposed to. Discussed measures that she must take to decrease her symptoms.Advised her to follow-up with her primary care doctor. Discussed red flagsymptoms and ER precautions.ED CourseMedication(s) OrderedMedication(s) Ordered:Central Nervous System Agents Sig/Milka Start time Last Medication Dose Route Stop Time Status Admin Acetaminophen 1,000 MG X1ED STA 04/24 1708 DC 04/24 PO 04/24 1709 1726Electrolytic, Caloric, And Francia Sig/Milka Start time Last Medication Dose Route Stop Time Status Admin IV Flush 10 ML X1ED - MAY REPEAT .. 04/24 1600 DCD IV 04/24 1958Differential DiagnosisDifferential Diagnosis DVT, lymphedema, chfPatient Discharge DepartureVital Signs/ConditionVital SignsFirst Documented: Result Date Time Pulse Ox 99 04/24 1550 B/P 179/76 04/24 1550 B/P Mean 110 04/24 1550 O2 Delivery Room air 04/24 1550 Temp 98.5 04/24 1550 Pulse 75 04/24 1550 Resp 18 04/24 1550Last Documented: Result Date Time Pulse Ox 99 04/24 1728 B/P 188/82 04/24 1728 B/P Mean 117 04/24 1728 O2 Delivery Room air 04/24 1728 Pulse 72 04/24 1728 Resp 18 04/24 1728 Temp 98.5 04/24 1550All vital signs available at the time of this entry have been reviewed.Condition StableClinical ImpressionClinical ImpressionPrimary Impression: LymphedemaDisposition DecisionDischarge )( Discharged to Home Yes )( Time 1716 )( Date 04/24/24Discharge/Care PlanCounseled Regarding Diagnosis, Lab results, Imaging studies, Need for follow-up,When to return to EDPatient Instructions ED LymphedemaAdditional InstructionsLease follow-up with your primary care provider as we discussed. Also be sureyou are wearing your compression stockings and elevating your legs as often aspossible.Departure FormsRETURN TO WORK/SCHOOL Discharge NoteI have spoken with the patient and/or caregivers. I have explained the patient'scondition, diagnoses and treatment plan based on the information available to meat this time. I have answered the patient's and/or caregiver's questions andaddressed any concerns. The patient and/or caregivers have as good anunderstanding of the patient's diagnosis, condition and treatment plan as can beexpected at this point. The vital signs have been stable. The patient'scondition is stable and appropriate for discharge from the emergency department.The patient will pursue further outpatient evaluation with the primary carephysician or other designated or consulting physician as outlined in thedischarge instructions. The patient and/or caregivers are agreeable to this planof care and follow-up instructions have been explained in detail. The patientand/or caregivers have received these instructions in written format and haveexpressed an understanding of the discharge instructions. The patient and/orcaregivers are aware that any significant change in condition or worsening ofsymptoms should prompt an immediate return to this or the closest emergencydepartment or a call to 1.Isaiah Burgos 04/25/24 0951:Patient Discharge DepartureDischarge/Care PlanReferralsProvider Referral: Anastasiia Alexis [facility] Address: [address] [place], [place] [address]Dypvtuvmiza Physician Note MidLv Saw Pt AloneI have reviewed the PA/SURFACE GRINDER's note and plan of care. I was available forconsultation as needed at all times during the patient's visit in the emergencydepartment. I agree with the clinical impression, plan and disposition. at 2214 at 0951RPT #: [id number] OF REPORT Ambulatory Encounter Reason:[id number] SPLIT NIGHT Encounter Diagnosis:COPD with asthma,Essential (primary) hypertension,Gastro-esophageal reflux disease without esophagitis,Obstructive sleep apnea (adult) (pediatric) 16-Apr-2024 08:[id number] 23:00 [facility] Discharge Disposition:Discharged to home or self care (routine discharge) Ambulatory Encounter Reason:RIGHT LOWER QUADRANT PAIN Encounter Diagnosis:Acquired absence of both cervix and uterus,Right lower quadrant pain 14-Jan-2024 12:[id number] 12:48 [facility] Discharge Disposition:Discharged to home or self care (routine discharge) Plan of Treatment Future Tests Future scheduled test information is unavailable Pending Tests Pending diagnostic test information is unavailable Future Visits Future appointment information is unavailable Referrals to Other Providers Reason for Referral Referral Start Date Provider Provider Contact Information Provider Address [facility] Phone[facility] [address] [facility] [address] Anastasiia [facility] Reuben Work Phone: [address] [facility] [address] Future Procedures Future procedure information is unavailable Future Medications Future medication information is unavailable Patient Instructions Instruction Admit Date ED Leg Swelling in Both Legs April 3:03pm ED Lymphedema April 24, 2024 3: 43pm Assessments Diagnosis Onset Date Resolution Status Admit Date Swelling of lower extremity Active April 25, 2024 3:03pm
--- OUTSIDE RECORDS SUMMARY | 2024-12-17 16:34 | XMS_ITS | Clinical Summary ---
Author Organization [facility] Address [address] [place] [address] Care Team Providers Care Senior Courtroom Clerk Name Role Phone Andrea Garcia MD Primary Care Provider [phone] Source Comments [facility],non-owned Affiliates and Associated Physician Practices is amultiple site organization consisting of ambulatory clinics and hospital sitesin [place], [place] and [place]. This disclosure is being madepursuant to the Care Everywhere program and may not contain all information available regarding this patient. Last updated 18.[facility] Allergies Active Allergy Reactions Criticality Noted Date Comments Codeine Unknown 02/11/2021 Famotidine Rash Medium 08/21/2019 Lisinopril Headache 02/18/2019 Omeprazole Other 02/13/2018 Red streaks on breastst Prednisone Rash,Unknown Medium 02/07/2017 Medications * Be aware that medications may not be up to date on this document. Alwaysverify current medications with the patient. albuterol HFA (PROVENTIL;VENT MER;PROAIR) 108 (90 Base) MCG/ACT inhaler Inhale 2 puffs by mouth every 6 hours as needed 9 Active amLODIPine (NORVASC) 2.5 MG tablet Take 2.5 mg by mouth once daily 0 Active aspirin EC (ECOTRIN) 81 MG tablet Take 81 mg by mouth once daily Active fluticasone propionate (FLONASE) 50 MCG/ACT nasal spray Gilbert 1 spray into the nose once daily 0 Active FLOVENT HFA 44 MCG/ACT inhaler 0 Active gabapentin (NEURONTIN) 100 MG capsule Take 1 (one) capsule by mouth at bedtime 30 capsule 1 1 Active Additional Information Patient not taking.Reported on 02/11/2021 celecoxib (CELEBREX) 200 MG capsuleIndicati ons:Plantar fasciitis, bilateral,Heel pain, bilateral,Idiop athic peripheral neuropathy,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 TAKE 1 CAPSULE BY MOUTH TWICE DAILY NEEDED FOR WITH FOOD 180 capsule 1 Active vitamin D, ergocalciferol, (DRISDOL) 1.25 MG (10822 UT) capsule TAKE 1 CAPSULE BY MOUTH EVERY 7 DAYS 12 capsule 1 Active Active Problems Problem Noted Date Diagnosed Date Hip pain 02/11/2021 Osteoarthritis of left knee 01/05/2020 Prediabetes 10/17/2019 Chronic pain of both knees 09/08/2019 Essential hypertension 01/20/2019 Cellulitis 03/26/2018 Sacroiliitis 02/13/2018 Anxiety 02/07/2018 Lumbar canal stenosis 01/18/2018 Degeneration of intervertebral disc 01/10/2018 Paresthesia and pain of extremity 01/10/2018 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 Overview (02/11/2021): Transitioned From: Pulmonary nodule Allergic rhinitis 06/06/2017 Asthma 06/06/2017 Seasonal allergies 05/27/2017 Chronic GERD 04/05/2017 Obesity 09/27/2016 Resolved Problems Problem Noted Date Diagnosed Date Resolved Date Fever 10/08/2017 02/25/2021 Immunizations Immunization Administration Dates Next Due PNEUMOCOCCAL PPSV23 10/17/2019 Social History Tobacco Use Types Packs/Day Years Used Date Smoking Tobacco: Former Cigarettes Smokeless Tobacco: Never Comments Unknown Sex and Gender Information Value Date Recorded Sex Assigned at Not on file Legal Sex Female 3:43 PM CDT Gender Identity Female 11/24/2020 11:24 AM CDT Sexual Orientation Not on file Last Filed Vital Signs Vital Sign Reading Time Taken Comments Blood Pressure 128/78 04/05/2021 3:20 PM CDT Pulse 70 04/05/2021 3:20 PM CDT Temperature 36.5 C (97.7 F) 02/11/2021 9:56 AM CDT Respiratory Rate - - Oxygen Saturation 97% 02/11/2021 9:56 AM CDT Inhaled Oxygen Concentration - - Weight 89.4 kg (197 lb) 04/05/2021 3:20 PM CDT Height 149.9 cm (4' 11) 04/05/2021 3:20 PM CDT Body Mass Index 39.79 04/05/2021 3:20 PM CDT Plan of Treatment Health Maintenance Due Date Last Done Comments BONE DENSITY TESTING 1955 COLOGUARD (AGES 45-75) - COL ON CA SCREENING 1955 COLON MONITORING 1955 COLONOSCOPY - COLON CA SCREENING 1955 CT COLONOGRAPHY - COLON CA SCREENING 1955 Colorectal Cancer Screening 1955 FIT - COLON CA SCREENING 1955 FLEX SIG - COLON CA SCREENING 1955 LIPID TESTING 1955 MAMMOGRAM 1955 DTAP/TDAP/TD VACCINES (1 - Tdap) 1976 ZOSTER VACCINE (1 of 2) 2007 PNEUMOCOCCAL VACCINE 50+ (2 of 2 - PCV) 10/16/2020 10/17/2019 SCREENING FOR DIABETES 01/07/2024 01/06/2021 COVID-19 VACCINE (1 - 2023-2 5 season) 2024 DEPRESSION SCREENING 07/23/2024 INFLUENZA VACCINE (Season Ended) 2025 Respiratory Syncytial Virus (RSV) Vaccine Pt: or over 60 yrs (1 - 1-dose 75+ series) 2032 HEPATITIS C SCREENING Completed 01/06/2021 HEPATITIS B VACCINE Aged Out No longe r eligible based on patient's age to complete this topic HIB VACCINE Aged Out No longer eligi ble based on patient's age to complete this topic HPV VACCINE Aged Out No longer eligi ble based on patient's age to complete this topic MENINGOCOCCAL (Group B) VACC INE SHARED DECISION-MAKING Aged Out No longer eligibl e based on patient's age to complete this topic MENINGOCOCCAL GROUPS A/C/Y/W VACCINE Aged Out No longer eligible b ased on patient's age to complete this topic Procedures Procedure Name Priority Date/Time Associated Diagnosis Comments COMPREHENSIVE METABOLIC PANEL Routine 01/06/2021 4:15 PM CDT Pain in joint, multiple sites HEPATITIS SCREEN ACUTE Routine 4:15 PM CDT Pain in joint, multiple sites from Last 3 Months or Most Recently Relevant to Health Maintenance Results * (ABNORMAL) COMPREHENSIVE METABOLIC PANEL (01/06/2021 4:15 PM CDT) Glucose 96 65 - 99 mg/dL [facility] ACCOUNT BILL BUN 15 8 - 27 mg/dL [facility] ACCOUNT BILL Creatinine 0.59 0.57 - 1.00 mg/dL [facility] ACCOUNT BILL eGFR by MDRD 98 >59 mL/min/1.7 3 [facility] ACCOUNT BILL eGFR by MDRD 113 >59 mL/min/1.7 3 [facility] ACCOUNT BILL Comment: [facility] currently reports eGFR in compliance with the current recommendations of the National Kidney Foundation. [facility] will update reporting as new guidelines are published from the NKF-ASN Task force. BUN/Creatinine Ratio 25 12 - 28 [facility] ACCOUNT BILL Sodium 144 134 - 144 mmol/L [facility] ACCOUNT BILL Potassium 4.8 3.5 - 5.2 mmol/L [facility] ACCOUNT BILL Chloride 107(H) 96 - 106 mmol/L [facility] ACCOUNT BILL CO2 26 20 - 29 mmol/L [facility] ACCOUNT BILL Calcium 9.8 8.7 - 10.3 mg/dL [facility] ACCOUNT BILL Protein Total 6.9 6.0 - 8.5 g/dL [facility] ACCOUNT BILL Albumin 3.9 3.8 - 4.8 g/dL [facility] ACCOUNT BILL Globulin Total 3.0 1.5 - 4.5 g/dL [facility] ACCOUNT BILL Albumin/Globulin Ratio 1.3 1.2 - 2.2 [facility] ACCOUNT BILL Bilirubin Total 0.2 0.0 - 1.2 mg/dL [facility] ACCOUNT BILL Alkaline Phosphatase 97 48 - 121 IU/L [facility] ACCOUNT BILL AST 17 0 - 40 IU/L [facility] ACCOUNT BILL ALT 10 0 - 32 IU/L [facility] ACCOUNT BILL Blood BLOOD SPECIMEN / Unknown 01/06/2021 4:15 PM CDT 01/06/2021 Narrative Resulting Agency Comment [facility]: [facility] [address] [id number] Jeri Garcia MD LAB - CHEMISTRY ORDERABLES Final Result Performing Organization Address [facility] Co de Phone Number [facility] ACCOUNT BILL [address] [place] [address] * HEPATITIS SCREEN ACUTE (01/06/2021 4:15 PM CDT) Hepatitis A Virus Antibody IgM Negative Negative [facility] ACCOUNT BILL Hepatitis B Virus Surface Antigen Negative Negative [facility] ACCOUNT BILL Hepatitis B Core Virus Antibody IgM Negative Negative [facility] ACCOUNT BILL Hepatitis C Antibody <0.1 0.0 - 0.9 s/co ratio [facility] ACCOUNT BILL Comment: Negative: < 0.8 Indeterminate: 0.8 - 0.9 Positive: > 0.9 . The CDC recommends that a positive HCV antibody result be followed up with a HCV Nucleic Acid Amplification test (218788). Blood BLOOD SPECIMEN / Unknown 01/06/2021 4:15 PM CDT 01/06/2021 Narrative Resulting Agency Comment Lab Testing performed at: [facility] [address] [id number] Jeri Garcia MD LAB - CHEMISTRY ORDERABLES Final Result Performing Organization Address [facility] de Phone Number [facility] ACCOUNT BILL [address] [place] [address] from Last 3 Months or Most Recently Relevant to Health Maintenance Insurance [employer]THEM Care Teams Senior Courtroom Clerk Relationship Specialty Start Date End Date Andrea Garcia MD [address] [place] [address] PCP - General 06/06/21
--- OUTSIDE RECORDS SUMMARY | 2024-12-17 16:34 | XMS_ITS | Encounter Summary ---
Author Organization [facility] Address [address] [place] [address] Care Team Providers Care Quote Clerk Name Role Phone Tyler Davis MD Primary Care Provider [phone] Encounter Details Date Type Department Care Team (Late st Contact Info) Description 11/28/2024 Results Follow-Up [facility] [address] Medical Office Building [address] [place] [address] Almaz Galvez MD [address] [place] [address] Dexa Axial Skeleton Bone Density 1 or 2 Site Social History Tobacco Use Types Packs/Day Years [...] 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
--- OUTSIDE RECORDS SUMMARY | 2024-12-17 16:34 | XMS_ITS | Referral Summary ---
Author Organization [facility] Address [address] [place] [address] Care Team Providers Care Agronomist Name Role Phone Tyler Davis MD Primary Care Provider [phone]- [phone] Encounters Date Type Department Care Team Description 12/17/2024 3:45 PM CDT Office Visit [facility] Care at [address] [address] Marlene Vail PA Pelvic pain (Primary Dx) 12/16/2024 Telephone [facility] [address] [place] [address] Office Building [address] [place] [phone] Almaz Galvez MD JACK SPINNER Problem 12/04/2024 Telephone [facility] - [facility] [address] [place] [address] [place] [phone] Lety Rodriguez, SOPHIA Test Results 12/04/2024 Results Follow-Up [facility] [address] [place] [address] Building [address] [place] [phone] Vi Royal, LUIS E Urine culture Urine, clean voided, NuSwab BV and Mariah, JUAN R 12/04/2024 Telephone [facility] [address] [place] [address] [place] [phone] Lety Rodriguez, SOPHIA Follow-Up Call 24-48 Hours 12/03/2024 11:43 AM CDT - 12/03/2024 11:59 PM CDT Hospital Encounter [facility] - Imaging [address] [place] [phone] Almaz Galvez MD Abnormal ultrasound of breast Discharge Disposition: Discharge to home or self care 12/03/2024 11:12 AM CDT - 12/03/2024 11:59 PM CDT Hospital Encounter [facility] [address] [place] [phone] Almaz Galvez MD Abnormal ultrasound of breast Discharge Disposition: Discharge to home or self care 12/02/2024 Orders Only [facility] [address] [place] [address] [address], [place] [address] Almaz Galvez MD Osteoporosis, unspecified osteoporosis type, unspecified pathological fracture presence (Primary Dx) 12/01/2024 11:30 AM CDT Office Visit [facility] [address] [place] [address] [address], [place] [address] Vi Royal NP Vaginal discharge (Primary Dx); Vaginal odor; Burning with urination; Post-traumatic stress 12/01/2024 Telephone [facility] [address] [place] [address] [address], [place] [address] Jade Schulz Referral Request 11/28/2024 Results Follow-Up [facility] [address] [place] [address] Office [facility] [address], [place] [address] Almaz Galvez MD Dexa Axial Skeleton Bone Density 1 or 2 Site 11/27/2024 12:16 PM CDT - 11/27/2024 11:59 PM CDT Hospital Encounter [facility] [address] [place] [phone] Postmenopausal Discharge Disposition: Discharge to home or self care 11/21/2024 7:27 AM CDT - 11/21/2024 11:59 PM CDT Hospital Encounter [facility] [address] [place] [phone] Pain in both knees, unspecified chronicity Discharge Disposition: Discharge to home or self care 11/21/2024 8:15 AM CDT Office Visit [facility] Orthopaedic Surgery [address] [place] [phone] Lucia Moncada NP Pain in both knees, unspecified chronicity (Primary Dx); Bilateral primary osteoarthritis of knee; Class 2 obesity due to excess calories with body mass index (BMI) of 35.0 to 35.9 in adult, unspecified whether serious comorbidity present 11/13/2024 Orders Only [facility] [address] [place] [phone] Nieves Mario RN 11/13/2024 Telephone [facility] [address] [place] [phone] Nieves Mario, RN Appointment 10/20/2024 Telephone [facility] [address] [place] [phone] Lety Rodriguez, SOPHIA 09/30/2024 Telephone [facility] [address] [place] [phone] Ayesha Ramirez, computerized machine fabric cutter Only from Last 3 Months Allergies Active Allergy Reactions Criticality Noted Date [...] rash Medications amLODIPine (NORVASC) 2.5 mg tablet Active benzonatate (TESSALON) 100 mg capsule TK ONE C PO TID PRN COU Active mupirocin (BACTROBAN) 2 % ointment KRIS EXT AA TID FOR 7 DAYS Active tolterodine LA (DETROL LA) 2 mg 24 hr capsule Active triamcinolone (KENALOG) 0.1 % cream KRIS EXT AA BID Active traMADoL (ULTRAM) 50 mg tablet Take 1 tablet (50 mg total) by mouth every 6 (six) hours as needed for pain 10 tablet Active fluticasone propionate (FLONASE) 50 mcg/actuation nasal spray Administer 1 spray into affected nostril(s) daily as needed Active fluconazole (DIFLUCAN) 150 mg tablet Take 1 tablet by mouth today, may repeat dose in 3 days if symptoms persist. 024 Active ketoconazole (NIZORAL) 2 % cream Active [...] 2 (two) times a day as needed 024 Active nitrofurantoin monohydrate (MACROBID) 100 mg capsule Take 1 capsule (100 mg total) by mouth 2 (two) times a day 025 Active nitroglycerin (NITROSTAT) 0.4 mg SL tablet 025 Active ondansetron ODT (ZOFRAN-ODT) 4 mg disintegrating tablet Take 1 tablet (4 mg total) by mouth every 8 (eight) hours as needed Active oseltamivir (TAMIFLU) 75 mg capsule TAKE 1 CAPSULE BY MOUTH TWICE A DAY FOR 5 DAYS Active traZODone (DESYREL) 50 mg tablet Take 1 tablet (50 mg total) by mouth daily 024 Active predniSONE (DELTASONE) 20 mg tablet TAKE [...] urinary incontinence, female) 2023 Vaginal odor 12/05/2023 Social History Tobacco Use Types Packs/Day Years [...] 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 on file Not on file Last Filed Vital Signs [...] 12/17/2024 3:46 PM CDT Plan of Treatment Not on file Medical Devices Implanted Type Area Food Bagging Machine Operator Device Identifier Shelf Expiration Date Model / Serial / Lot Bard Peripheral Vascular [employer]omark Ultracor Bard 14ga 10cm Rigid Needle 1 Microfiber Pad [id number] - [id number] Implanted:Qty: 1 on 12/03/2024 at [facility] [employer] [id number] / / Procedures Procedure Name Priority Date/Time [...] (OP Routine) 11/27/2024 12:56 PM CDT Postmenopausal SD ARTHROCENTESIS ASPIR&/INJ MAJOR JT/BURSA W/O US Routine [...] Read Routine (OP Routine) 09/16/2024 7:14 AM INDOOR LANDSCAPE ARCHITECT Breast pain from Last 3 Months or [...] tolerated the procedure well, and left the [facility] in good condition, without evidence of [...] tolerated the procedure well, and left the [facility] in good condition, without evidence of immediate complication. us Almaz Galvez MD IMG MAMMO PROCEDURES Edited Result - Final * Surgical pathology (12/03/2024 12:47 PM CDT) Tissue (Breast biopsy, needle core) 12/03/2024 12:47 PM CDT Comment:Dr. Cordero- Hypoec hoic mass. Narrative PATHOLOGY [facility] - 12/04/2024 2:02 PM CDT [address] [address] Tele: Nieves Ibrahim MD - Plate Take Out Worker Note to Patients: This report may contain [...] PATHOLOGY REPORT Patient Name: EDITH WITT Address: [address] [place] [phone] Gender: F : 1955 (Age: 69) Service: Location: , Hospital #: [id number] Patient Type: [facility] ANCILLARY Taken: 12/03/2024 Received 12/03/2024 Reported: 12/04/2024 Physician(s): [facility] - MD Tyler Black M.D. 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 Report Reviewed and Electronically Signed By Carlos Valdez M.D. SPECIMEN TYPE: A: RT BREAST 9:30 7CMFN; 4X14G CORES CLINICAL IMPRESSION AND HISTORY: Right breast 9:30-hypoechoic mass. GROSS DESCRIPTION: Received in formalin labeled with EDITH WITT and right breast 9:30, 7 cm from [...] is entirely submitted in cassette labeled A1. [facility] MICROSCOPIC DESCRIPTION: Sections of the right breast [...] and lobular components. Clerical Data Follows A; 48035, 79741, 13157(2) REPORT IMAGES AND/OR SCANNED DOCUMENTS ONLY VIEWABLE IN PDF FORMAT The immunohistochemical test(s) cited in this report, if any, was developed and its performance characteristics determined by [facility] Pathology Department. It has not been cleared or approved by the U.S. Food and Drug Administration. The FDA has determined that such clearance or approval is not necessary. This test is used for clinical purposes. It should not be regarded as investigational or for research. [facility] Laboratory is certified under the Clinical [...] part or completely in the following laboratories: [facility], [address], [place], [place] [address] [place] [address], [address] [place] [address]. Almaz Galvez MD LAB PATHOLOGY ORDERABLES Fi nal Result PATHOLOGY [facility] Laboratory Receiving [address] [place] [address] * NuSwab BV and Mariah, JUAN R [...] - 01 12/01/2024 4:41 AM CDT 12/01/2024 Comment:[place] Narrative [facility] - 12/02/2024 7:08 PM CDT Test(s) 156692- Atopobium vaginae; 660974- BVAB 2; 914973- Megasphaera 1 was developed and its performance characteristics determined by [facility]. It has not been cleared or approved by the Food and Drug Administration. Test(s) 357986-Kgcwazp albicans, JUAN R; 306240-Mhurdst glabrata, JUAN R was developed and its performance characteristics determined by [facility]. It has not been cleared or approved by the Food and Drug Administration. Performed at: [address] [id number] City Weighmaster: Didi Calvo MD, Phone: [phone] Vi Royal NP LAB MICROBIOLOGY - GEN ERAL ORDERABLES Final Result Performing Organization Address [facility] Co de Phone Number [facility] - * Urine culture Urine, clean voided (12/01/2024 2:31 AM CDT) [facility] Urine culture Final report [facility] - Result 1 Comment [facility] - Comment: Mixed urogenital yael 25,000-50,000 colony forming units per mL Urine, clean voided 12/01/2024 2:31 AM CDT 12/01/2024 Comment: Narrative [facility] - 12/03/2024 7:09 AM CDT Performed at: [address] [id number] City Weighmaster: Bill Vallejo PhD, Phone: [phone] Vi Royal NP LAB MICROBIOLOGY - GEN ERAL ORDERABLES Final Result Performing Organization Address [facility] Co de Phone Number [facility] - * Dexa Axial Skeleton Bone Density 1 [...] IMG DXA PROCEDURES Final Re sult * SD ARTHROCENTESIS ASPIR&/INJ MAJOR JT/BURSA W/O US (11/21/2024 [...] with no immediate complications us Lucia Moncada PHLEBOTOMY PROGRAM COORDINATOR IN CLINIC/BEDSIDE ORDERAB LES Final Result * [...] by: Rachid Guadalupe M.D. us Lucia Moncada NP IMG XR PROCEDURES Final [...] by: Rachid Guadalupe M.D. us Lucia Moncada NP IMG XR PROCEDURES Final R esult * (ABNORMAL) Diagnostic Mammogram Bilateral W Sunday (09/16/2024 7:14 AM INDOOR LANDSCAPE ARCHITECT) Anatomical Region Laterality Modality Breast Bilateral Mammography 09/16/2024 8:10 AM INDOOR LANDSCAPE ARCHITECT Impressions 09/16/2024 8:10 AM INDOOR LANDSCAPE ARCHITECT 1. Area in the right breast at [...] right breast at 9:30. Electronically signed by: Farzaneh Roberts M.D. Narrative 09/16/2024 8:10 AM INDOOR LANDSCAPE ARCHITECT EXAMINATION: BILATERAL DIGITAL DIAGNOSTIC MAMMOGRAM INCLUDING CAD [...] asymmetry in the right breast on mammogram. us Almaz Galvez MD IMG MAMMO PROCEDURES Final Result from Last 3 Months or Most Recently Relevant to Health Maintenance [facility] PRF PPO CT MEDICARE MEDICARE T SENIOR SUPPLEMENT MEDICARE AET SENIOR SUPPLEMENT Advance Directives For more information, please contact: [phone] * Full Code (Latest Code Status on File) Date Activated Date Inactivated Comments 10/09/2023 7:29 AM 10/09/2023 4:26 PM Care Teams Agronomist Relationship Specialty [place] [address] [place] [address] PCP - General Family Practice 06/22/23
--- OUTSIDE RECORDS SUMMARY | 2024-12-17 16:34 | XMS_ITS | Encounter Summary ---
Author Organization [facility] Healthcare Address [address] [place] [address] Care Team Providers Care Data Processing Consultant Name Role Phone Tyler Davis MD Primary Care Provider +1- [phone] Reason for Visit * Reason Comments Pelvic Pain Started last night, with a sharp, stabbing pain, and pressure, vibrating, constant pain, Encounter Details Date Type Department Care Team (Late st Contact Info) Description 12/17/2024 3:45 PM CDT Office Visit [facility] at [address] [address] [place] [address] Pelvic pain (Primary Dx) Social History Tobacco Use Types Packs/Day Years Used Date Smoking Tobacco: Former Cigarettes 1 - 2004 Smokeless Tobacco: Never Alcohol Use [...] 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
[2024-12-17 16:41] VITALS: BP 175/86; PULSE 87; RESP 16; TEMP 36.8; O2SAT 100
--- NOTE | 2024-12-17 17:39 | ED.FEMALEGU ---
HPI - Female Genitourinary General Chief complaint: Urogenital-Female <Ayesha Bailey PA-C - Last Filed: 12/18/24 10:25> Stated complaint: Pelvic pain/vibration since 429, burn left wrist <Ayesha Bailey PA-C - Last Filed: 12/18/24 10:25> Time Seen by Provider: 12/17/24 17:39 <Ayesha Bailey PA-C - Last Filed: 12/18/24 10:25> Focused HPI: This is a 69 year old female that presents to the ER for pelvic burning. Reports nausea and vomiting. Ongoing since 4:30 this morning. Denies fever, hematuria. GENERAL: Well-appearing, well-nourished, and in no acute distress. HEAD: Normocephalic, atraumatic. CHEST: Clear to auscultation. ?No respiratory distress. HEART: Regular rate and rhythm.? NEURO: ?Alert and oriented x3. Patient screened in triage and initial orders placed.? ?Additional care and disposition to be based upon?diagnostic testing and treatment. <Ayesha Bailey PA-C - Last Filed: 12/18/24 10:25> History of Present Illness HPI Narrative: This is a 69-year-old female presenting with pelvic pain. Last week she had urinary symptoms including dysuria and urgency. She took Pyridium which improved her pain. However now she is we developed sharp stabbing pains in the pelvic area. No flank pain. She said she felt hot last night has not taken a temperature at home. No nausea vomiting or diarrhea. <Gerard Ramos MD - Last Filed: 12/17/24 21:48> Related Data Home medications: Home Medications ?Medication ?Instructions ?Recorded ?Confirmed ?Last Taken ?Type albuterol sulfate 2.5 mg/3 mL 2.5 mg inhalation Q4-6H PRN 02/02/20 05/20/21 06/02/21 History (0.083 %) solution for nebulization Shortness Of Breath ergocalciferol (vitamin D2) 1,250 1,250 mcg PO DAILY 05/20/21 05/20/21 06/02/21 History mcg (50,000 unit) capsule furosemide 20 mg tablet 20 mg PO PRN PRN Weight Gain 05/20/21 05/20/21 Unknown History <Ayesha Bailey PA-C - Last Filed: 12/18/24 10:25> Allergies/Adverse reactions: Allergies Allergy/AdvReac Type Severity Reaction Status Date / Time methylprednisolone Allergy Unknown Other Verified 12/17/24 16:32 lisinopril AdvReac Headache Verified 12/17/24 16:44 morphine AdvReac Other Verified 12/17/24 16:44 <Ayesha Bailey PA-C - Last Filed: 12/18/24 10:25> Review of Systems Review of Systems: All systems reviewed & are unremarkable except as noted in HPI and below <Ayesha Bailey PA-C - Last Filed: 12/18/24 10:25> [facility] Past Medical History Medical History: Medical History Morbid obesity MICHELLE (obstructive sleep apnea) Essential (primary) hypertension OAB (overactive bladder) Asthma <Ayesha Bailey PA-C - Last Filed: 12/18/24 10:25> Surgical History Surgical History: Surgical History History of esophagogastroduodenoscopy (EGD) <Ayesha Bailey PA-C - Last Filed: 12/18/24 10:25> Family History Family History: Family History Mother Family history of diabetes mellitus in first degree relative Sibling Family history of diabetes mellitus in first degree relative Family history of coronary artery disease Family history of malignant neoplasm of breast in first degree relative Father Family history of coronary artery disease <Ayesha Bailey PA-C - Last Filed: 12/18/24 10:25> Social History Social History: Social History Smoking packs per day: 1 Smoking cigarettes per day: 20.0 Smoking status: Former smoker Tobacco type: cigarettes Smoking end date: 07/23/95 Alcohol intake: never Substance use: never Substance use type: does not use Living arrangements: with family Occupation/Education: occupation Gender identity (if verbalized by the patient): Female Spiritual care concerns: No <Ayesha Bailey PA-C - Last Filed: 12/18/24 10:25> Exam Narrative: APPEARANCE: No apparent distress. Anxious appearing Head: atraumatic. EYES: EOMI, NOSE: Atraumatic NECK: Trachea midline RESPIRATORY: No increased rate of breathing clear to auscultation CARDIOVASCULAR: RRR, no peripheral edema ABDOMINAL: Non-distended soft nontender, no CVA tenderness MUSCULOSKELETAl: No obvious deformities NEURO: Alert. Moving 4/4 extremities SKIN:: Warm, dry. Normal color PSYCHIATRIC: Normal affect <Gerard Ramos MD - Last Filed: 12/17/24 21:48> Course Vital Signs Vital signs: Vital Signs Temperature 98.3 F 12/17/24 16:41 Pulse Rate 87 12/17/24 16:41 Respiratory Rate 16 12/17/24 16:41 Blood Pressure 175/86 H 12/17/24 16:41 Pulse Oximetry 100 12/17/24 16:41 Temperature 98.3 F 12/17/24 16:41 Pulse Rate 87 12/17/24 21:17 Respiratory Rate 16 12/17/24 21:17 Blood Pressure 181/88 H 12/17/24 21:17 Pulse Oximetry 99 12/17/24 21:17 <Ayesha Bailey PA-C - Last Filed: 12/18/24 10:25> Vital Signs Temperature 98.3 F 12/17/24 16:41 Pulse Rate 87 12/17/24 16:41 Respiratory Rate 16 12/17/24 16:41 Blood Pressure 175/86 H 12/17/24 16:41 Pulse Oximetry 100 12/17/24 16:41 Temperature 98.3 F 12/17/24 16:41 Pulse Rate 87 12/17/24 21:17 Respiratory Rate 16 12/17/24 21:17 Blood Pressure 181/88 H 12/17/24 21:17 Pulse Oximetry 99 12/17/24 21:17 <Gerard Ramos MD - Last Filed: 12/17/24 21:48> MDM - Female Genitourinary MDM Narrative Medical decision making narrative: -Course: 69-year-old female presenting with pelvic pain after treating a UTI with Pyridium. Abdominal exam is benign. Urine here is indicative of infection. She will be treated with cefdinir. She does not have a white count or evidence of sepsis. She is very anxious and requesting something for anxiety which has been provided. Patient discharged with primary care follow-up return precautions. -DDX includes but is not limited to: UTI, pyelonephritis, BP <Gerard Ramos MD - Last Filed: 12/17/24 21:48> Lab Data Result diagrams: 12/17/24 18:58 12/17/24 18:58 <Ayesha Bailey PA-C - Last Filed: 12/18/24 10:25> Labs: Lab Results 12/17/24 Range/Units 18:58 WBC 6.2 (4.5-10.0) K/mm3 RBC 4.44 (4.2-5.4) M/mm3 Hgb 13.4 (12.0-15.0) g/dL Hct 42.0 (37.0-47.0) % MCV 94.6 (80-100) fl MCH 30.2 (26-34) pg MCHC 31.9 L (32-36) g/dl RDW 14.0 (11.5-14.5) % Plt Count 203 (150-375) k/mm3 MPV 9.4 (7.4-10.4) fl Immature Gran % (Auto) 0.3 (0-0.5) % Neut % (Auto) 67.7 (45.5-73.1) % Lymph % (Auto) 19.2 (18.3-44.2) % [place] % (Auto) 9.9 H (2.6-8.5) % Eos % (Auto) 2.6 (0-4.4) % Baso % (Auto) 0.3 (0.2-1.2) % Lymph # (Auto) 1.20 (0.9-3.2) K/mm3 [place] # (Auto) 0.6 (0.1-0.6) K/mm3 Eos # (Auto) 0.2 (0-0.3) K/mm3 Baso # (Auto) 0.0 (0.0-0.1) K/mm3 Abs Immat Gran (auto) 0.02 (0.00-0.031) K/mm3 Absolute Neuts (auto) 4.2 (1.3-6.7) K/mm3 Absolute Nucleated RBC 0.000 (0.0-0.012) K/mm3 Nucleated RBC % 0.0 (0.0-0.2) % Sodium 136 L (137-145) mmol/L Potassium 3.9 (3.4-5.0) mmol/L Chloride 107 (98-107) mmol/L Carbon Dioxide 27 (22-30) mmol/L Anion Gap 2 L (4-12) mmol/L BUN 16 (7-17) mg/dL Creatinine 0.51 L (0.7-1.0) mg/dL Estim Creat Clear Calc Not Reportable Estimated GFR > 60 (59 - ) Glucose 145 H (65-110) mg/dL Calcium 9.3 (8.4-10.2) mg/dL Total Bilirubin 0.4 (0.2-1.3) mg/dL AST 21 (14-36) U/L ALT 22 (6-35) U/L Alkaline Phosphatase 57 (38-126) U/L Total Protein 6.0 L (6.3-8.2) g/dL Albumin 3.6 (3.5-5.1) g/dL Lipase 17 L (23-300) U/L Urine Color Dark yellow (Yellow) Urine Appearance Cloudy H (Clear) Urine pH 5.0 (5.0-9.0) Ur Specific [place] 1.025 (1.001-1.035) Urine Protein Negative (Negative) mg/dL Urine Glucose (UA) Trace H (Negative) mg/dL Urine Ketones Trace H (Negative) mg/dL Ur Blood (Man) Negative (Negative) Urine Nitrate Positive H (Negative) Urine Bilirubin Negative (Negative) Urine Urobilinogen 1.0 (<2.0) mg/dL Add Ur Microanalysis Reviewed Leukocyte Esterase Rfl 2+ H (Negative) VICKY/UL Urine RBC 6-10 H (0-2) /hpf Urine WBC 21-50 H (0-3) /hpf Ur Squamous Epith Cells None seen (Few) /hpf Urine Bacteria 4+ H /hpf Urine Casts 0-2 <Ayesha Bailey PA-C - Last Filed: 12/18/24 10:25> Lab Results 12/17/24 Range/Units 18:58 WBC 6.2 (4.5-10.0) K/mm3 RBC 4.44 (4.2-5.4) M/mm3 Hgb 13.4 (12.0-15.0) g/dL Hct 42.0 (37.0-47.0) % MCV 94.6 (80-100) fl MCH 30.2 (26-34) pg MCHC 31.9 L (32-36) g/dl RDW 14.0 (11.5-14.5) % Plt Count 203 (150-375) k/mm3 MPV 9.4 (7.4-10.4) fl Immature Gran % (Auto) 0.3 (0-0.5) % Neut % (Auto) 67.7 (45.5-73.1) % Lymph % (Auto) 19.2 (18.3-44.2) % [place] % (Auto) 9.9 H (2.6-8.5) % Eos % (Auto) 2.6 (0-4.4) % Baso % (Auto) 0.3 (0.2-1.2) % Lymph # (Auto) 1.20 (0.9-3.2) K/mm3 [place] # (Auto) 0.6 (0.1-0.6) K/mm3 Eos # (Auto) 0.2 (0-0.3) K/mm3 Baso # (Auto) 0.0 (0.0-0.1) K/mm3 Abs Immat Gran (auto) 0.02 (0.00-0.031) K/mm3 Absolute Neuts (auto) 4.2 (1.3-6.7) K/mm3 Absolute Nucleated RBC 0.000 (0.0-0.012) K/mm3 Nucleated RBC % 0.0 (0.0-0.2) % Sodium 136 L (137-145) mmol/L Potassium 3.9 (3.4-5.0) mmol/L Chloride 107 (98-107) mmol/L Carbon Dioxide 27 (22-30) mmol/L Anion Gap 2 L (4-12) mmol/L BUN 16 (7-17) mg/dL Creatinine 0.51 L (0.7-1.0) mg/dL Estim Creat Clear Calc Not Reportable Estimated GFR > 60 (59 - ) Glucose 145 H (65-110) mg/dL Calcium 9.3 (8.4-10.2) mg/dL Total Bilirubin 0.4 (0.2-1.3) mg/dL AST 21 (14-36) U/L ALT 22 (6-35) U/L Alkaline Phosphatase 57 (38-126) U/L Total Protein 6.0 L (6.3-8.2) g/dL Albumin 3.6 (3.5-5.1) g/dL Lipase 17 L (23-300) U/L Urine Color Dark yellow (Yellow) Urine Appearance Cloudy H (Clear) Urine pH 5.0 (5.0-9.0) Ur Specific [place] 1.025 (1.001-1.035) Urine Protein Negative (Negative) mg/dL Urine Glucose (UA) Trace H (Negative) mg/dL Urine Ketones Trace H (Negative) mg/dL Ur Blood (Man) Negative (Negative) Urine Nitrate Positive H (Negative) Urine Bilirubin Negative (Negative) Urine Urobilinogen 1.0 (<2.0) mg/dL Add Ur Microanalysis Reviewed Leukocyte Esterase Rfl 2+ H (Negative) VICKY/UL Urine RBC 6-10 H (0-2) /hpf Urine WBC 21-50 H (0-3) /hpf Ur Squamous Epith Cells None seen (Few) /hpf Urine Bacteria 4+ H /hpf Urine Casts 0-2 <Gerard Ramos MD - Last Filed: 12/17/24 21:48> Critical Care Time Critical Care Time Critical Care Time: No <Ayesha Bailey PA-C - Last Filed: 12/18/24 10:25> Discharge Plan Discharge Clinical Impression: Acute UTI <Ayesha Bailey PA-C - Last Filed: 12/18/24 10:25> Patient Disposition: Home <Ayesha Bailey PA-C - Last Filed: 12/18/24 10:25> Condition: Stable <Ayesha Bailey PA-C - Last Filed: 12/18/24 10:25> Instructions: Antibiotic Form, Urinary Tract Infection in Women (DC) <Ayesha Bailey PA-C - Last Filed: 12/18/24 10:25> Additional Instructions: You seen emergency department for pain on urination. Your urine is infected. Please complete a course of cefdinir. Please follow-up with your primary care physician. If you feel your condition is getting worse, fevers or any new or worsening symptoms please return to ED for re-evaluation <Ayesha Bailey PA-C - Last Filed: 12/18/24 10:25> Patient Language: Portuguese <Ayesha Bailey PA-C - Last Filed: 12/18/24 10:25> Prescriptions: New cefdinir 300 mg capsule 300 mg PO Q12H Qty: 14 0RF No Action albuterol sulfate 2.5 mg /3 mL (0.083 %) solution for nebulization 2.5 mg INHALATION Q4-6H PRN (Reason: Shortness Of Breath) furosemide 20 mg tablet 20 mg PO PRN PRN (Reason: Weight Gain) ergocalciferol (vitamin D2) 1,250 mcg (50,000 unit) capsule 1,250 mcg PO DAILY pantoprazole 40 mg tablet,delayed release (DR/EC) 40 mg PO QAM Qty: 30 5RF <Ayesha Bailey PA-C - Last Filed: 12/18/24 10:25> Follow-up/Referrals: Susan,Tyler Addison MD [Primary Care Provider] - <Ayesha Bailey PA-C - Last Filed: 12/18/24 10:25>
[2024-12-17 19:08] LABS: Basophils Percent Auto 0.3 % (0.2-1.2); Eosinophils Absolute Auto 0.2 K/mm3 (0-0.3); Eosinophils Percent Auto 2.6 % (0-4.4); Hemoglobin 13.4 g/dL (12.0-15.0); Immature Granulocyte Absolute 0.02 K/mm3 (0.00-0.031); Immature Granulocyte Percent A 0.3 % (0-0.5); Lymphocytes Percent Auto 19.2 % (18.3-44.2); Mean Corpuscular HGB Conc 31.9 g/dl (32-36); Mean Corpuscular Hemoglobin 30.2 pg (26-34); Mean Corpuscular Volume 94.6 fl (80-100); Mean Platelet Volume 9.4 fl (7.4-10.4); Monocytes Absolute Auto 0.6 K/mm3 (0.1-0.6); Monocytes Percent Auto 9.9 % (2.6-8.5); Neutrophils Absolute Auto 4.2 K/mm3 (1.3-6.7); Neutrophils Percent Auto 67.7 % (45.5-73.1); Platelet Count Result 203 k/mm3 (150-375); Red Blood Count 4.44 M/mm3 (4.2-5.4); White Blood Count 6.2 K/mm3 (4.5-10.0)
[2024-12-17 19:19] LABS: Alanine Aminotransferase 22 U/L (6-35); Albumin Level 3.6 g/dL (3.5-5.1); Alkaline Phosphatase 57 U/L (38-126); Anion Gap 2 mmol/L (4-12); Aspartate Amino Transferase 21 U/L (14-36); Bilirubin,Total 0.4 mg/dL (0.2-1.3); Blood Urea Nitrogen 16 mg/dL (7-17); Calcium 9.3 mg/dL (8.4-10.2); Carbon Dioxide 27 mmol/L (22-30); Chloride 107 mmol/L (98-107); Estimated Glomerular Filt Rate > 60; Glucose 145 mg/dL (65-110); Lipase 17 U/L (23-300); Potassium 3.9 mmol/L (3.4-5.0); Sodium 136 mmol/L (137-145)
[2024-12-17 20:11] LABS: Add Urine Microscopic? YES; Appearance Urine Cloudy (Clear); Bacteria Urine 4+ /hpf; Bilirubin Urine Negative (Negative); Blood Urine Negative (Negative); Color Urine Dark Yellow (Yellow); Glucose Urine UA Trace mg/dL (Negative); Ketones Urine Trace mg/dL (Negative); Leukocyte Esterase Ur 2+ LEU/UL (Negative); Need Manual Microscopic Reviewed; Nitrate Urine Positive (Negative); Non Pathogenic Casts 0-2; Protein Urine Negative (Negative); Specific Grav Ur 1.025 (1.001-1.035); Squamous Epithelial Cell Urine None Seen /hpf (Few); WBC Urine 21-50 /hpf (0-3)
[2024-12-17 21:17] VITALS: BP 181/88; PULSE 87; RESP 16; O2SAT 99
--- OUTSIDE RECORDS SUMMARY | 2024-12-17 21:38 | XMS_ITS | Clinical Summary ---
Author Organization [facility] [employer] Address [address] [place] [address] Care Team Providers Care Brazing Machine Tender Name Role Phone Andrea Garcia MD Primary Care Provider [phone] Source Comments [facility] [employer],non-owned Affiliates and Associated Physician Practices is amultiple site organization consisting of ambulatory clinics and hospital sitesin [place], [place], [place] and [place]. This disclosure is being madepursuant to the Care Everywhere program and may not contain all information available regarding this patient. Last updated 18.[facility] [employer] Allergies Active Allergy Reactions Criticality Noted Date [...] fluticasone propionate (FLONASE) 50 MCG/ACT nasal spray [place] 1 spray into the nose once daily [...] Active vitamin D, ergocalciferol, (DRISDOL) 1.25 MG (29919 UT) capsule TAKE 1 CAPSULE BY MOUTH [...] Resulting Agency Comment [facility]: [facility] [address] [id number] Jeri Garcia MD LAB - CHEMISTRY ORDERABLES Final Result Performing Organization Address [facility] Co de Phone Number [facility] ACCOUNT BILL [address] [place] [address] * HEPATITIS SCREEN ACUTE (01/06/2021 4:15 PM [...] with a HCV Nucleic Acid Amplification test (165823). Blood BLOOD SPECIMEN / Unknown 01/06/2021 4:15 PM CDT 01/06/2021 Narrative Resulting Agency Comment Lab [facility] performed at: [facility] [address] [id number] Jeri Garcia MD LAB - CHEMISTRY ORDERABLES Final Result Performing Organization Address [facility] de Phone Number [facility] ACCOUNT BILL [address] [place] [address] from Last 3 Months or Most Recently Relevant to Health Maintenance Insurance ANTHEM Care Teams Brazing Machine Tender Relationship Specialty Start Date End Date Andrea Garcia MD [address] [place] [address] PCP - General 06/06/21
--- OUTSIDE RECORDS SUMMARY | 2024-12-17 21:38 | XMS_ITS | Referral Summary ---
Author Organization [facility] Address [address] [place] [address] Care Team Providers Care Third Rail Installer Name Role Phone Tyler Davis MD Primary Care Provider [phone] Encounters Date Type Department Care Team Description 12/17/2024 3:45 PM CDT Office Visit [facility] Formerly [facility] Care at [address] [phone] Marlene Vail PA Pelvic pain (Primary Dx) 12/16/2024 Telephone [facility] [address] [place] [address] Office Building [address] [place] [phone] Almaz Galvez MD UNIVERSITY SERVICES PROGRAM ASSOCIATE Problem 12/04/2024 Telephone [facility] [address] [place] [address] [place] [phone] Lety Rodriguez, SOPHIA Test Results 12/04/2024 Results Follow-Up [facility] [address] [place] [address] Building [address] [place] [phone] Vi Royal, LUIS E Urine culture Urine, clean voided, NuSwab BV and Mariah, JUAN R 12/04/2024 Telephone [facility] [address] [place] [address] [place] [phone] Lety Rodriguez, SOPHIA Follow-Up Call 24-48 Hours 12/03/2024 11:43 AM CDT - 12/03/2024 11:59 PM CDT Hospital Encounter [facility] [address] [place] [phone] Almaz Galvez MD Abnormal ultrasound of breast Discharge Disposition: Discharge to home or self care 12/03/2024 11:12 AM CDT - 12/03/2024 11:59 PM CDT Hospital Encounter [facility] [address] [place] [phone] Almaz Galvez MD Abnormal ultrasound of breast Discharge Disposition: Discharge to home or self care 12/02/2024 Orders Only [facility] [address] [place] [address] [address], [place] [address] Almaz Galvez MD Osteoporosis, unspecified osteoporosis type, unspecified pathological fracture presence (Primary Dx) 12/01/2024 11:30 AM CDT Office Visit [facility] [address] [place] [address] [address], [place] [address] Vi Royal NP Vaginal discharge (Primary Dx); Vaginal odor; Burning with urination; Post-traumatic stress 12/01/2024 Telephone [facility] [address] [place] [address] [address], [place] [address] Jade Schulz Referral Request 11/28/2024 Results Follow-Up [facility] [address] [place] [address] Office [facility] [address], [place] [address] Almaz Galvez MD Dexa Axial Skeleton Bone Density 1 or 2 Site 11/27/2024 12:16 PM CDT - 11/27/2024 11:59 PM CDT Hospital Encounter [facility] [address] [place] [phone] Postmenopausal Discharge Disposition: Discharge to home or self care 11/21/2024 7:27 AM CDT - 11/21/2024 11:59 PM CDT Hospital Encounter [facility] [address] [facility] [address] [place] [phone] Pain in both knees, unspecified chronicity Discharge Disposition: Discharge to home or self care 11/21/2024 8:15 AM CDT Office Visit [facility]opa[facility] Surgery [address] [facility] Medical Office Building [address] [place] [phone] Lucia Moncada NP Pain in both knees, unspecified chronicity (Primary Dx); Bilateral primary osteoarthritis of knee; Class 2 obesity due to excess calories with body mass index (BMI) of 35.0 to 35.9 in adult, unspecified whether serious comorbidity present 11/13/2024 Orders Only [facility] [address] [place] [phone] Nieves Mario RN 11/13/2024 Telephone [facility] [address] [place] [phone] Nieves Mario, RN Appointment 10/20/2024 Telephone [facility] [address] [place] [phone] Lety Rodriguez, SOPHIA 09/30/2024 Telephone [facility] [address] [place] [phone] Ayesha Ramirez, information manager Only from Last 3 Months Allergies Active [...] 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 Not on file Not [...] on file Medical Devices Implanted Type Area Design Intern Device Identifier Shelf Expiration Date Model / Serial / Lot Bard Peripheral Vascular [employer]omark Ultracor Bard 14ga 10cm Rigid Needle 1 Microfiber Pad [id number] - [id number] Implanted:Qty: 1 on 12/03/2024 at [facility] [employer] [id number] / / Procedures Procedure Name Priority Date/Time [...] (OP Routine) 11/27/2024 12:56 PM CDT Postmenopausal [place] ARTHROCENTESIS ASPIR&/INJ MAJOR JT/BURSA W/O US Routine [...] Read Routine (OP Routine) 09/16/2024 7:14 AM MOWER MECHANIC Breast pain from Last 3 Months or [...] tolerated the procedure well, and left the [facility] in good condition, without evidence of [...] tolerated the procedure well, and left the [facility] in good condition, without evidence of immediate complication. us Almaz Galvez MD IMG MAMMO PROCEDURES Edited Result - Final * Surgical pathology (12/03/2024 12:47 PM CDT) Tissue (Breast biopsy, needle core) 12/03/2024 12:47 PM CDT Comment:Dr. Cordero- Hypoec hoic mass. Narrative PATHOLOGY [facility] - 12/04/2024 2:02 PM CDT [address] [address] Tele: Nieves Ibrahim MD - Personal Development Educator Note to Patients: This report may contain [...] PATHOLOGY REPORT Patient Name: EDITH WITT Address: [address] [place] [phone] Gender: F : 1955 (Age: 69) Service: Location: , Hospital #: [id number] Patient Type: [facility] ANCILLARY Taken: 12/03/2024 Received 12/03/2024 Reported: 12/04/2024 Physician(s): [facility] - MD Tyler Black M.D. DIAGNOSIS: Breast, [...] is entirely submitted in cassette labeled A1. [facility] MICROSCOPIC DESCRIPTION: Sections of the right breast [...] and lobular components. Clerical Data Follows A; 11838, 61890, 12148(2) REPORT IMAGES AND/OR SCANNED DOCUMENTS ONLY VIEWABLE IN PDF FORMAT The immunohistochemical test(s) cited in this report, if any, was developed and its performance characteristics determined by [facility] Pathology Department. It has not been cleared or approved by the U.S. Food and Drug Administration. The FDA has determined that such clearance or approval is not necessary. This test is used for clinical purposes. It should not be regarded as investigational or for research. [facility] is certified under the Clinical [...] part or completely in the following laboratories: [facility], [address] [facility], [place], [place] [address] [place] [address], [address] [place] [address]. Almaz Galvez MD LAB PATHOLOGY ORDERABLES Fi nal Result PATHOLOGY [facility] Laboratory Receiving [address] [place] [address] * NuSwab BV and Mariah, JUAN R [...] [facility] - 12/02/2024 7:08 PM CDT Test(s) 967971- Atopobium vaginae; 130211- BVAB 2; 435203- Megasphaera 1 was developed and its performance characteristics determined by [facility]. It has not been cleared or approved by the Food and Drug Administration. Test(s) 009353-Tfoafzp albicans, JUAN R; 107968-Rhpmeoy glabrata, JUAN R was developed and its performance characteristics determined by [facility]. It has not been cleared or approved by the Food and Drug Administration. Performed at: [address] [id number] Flask Pusher: Didi Calvo MD, Phone: [phone] Vi Royal NP LAB MICROBIOLOGY - GEN ERAL ORDERABLES Final Result Performing Organization Address [facility] Co de Phone Number [facility] - * Urine culture Urine, clean voided (12/01/2024 2:31 AM CDT) [facility] Urine culture Final report [facility] - Result 1 Comment [facility] - Comment: Mixed urogenital yael 25,000-50,000 colony forming units per mL Urine, clean voided 12/01/2024 2:31 AM CDT 12/01/2024 Comment: Narrative [facility] - 12/03/2024 7:09 AM CDT Performed at: [address] [id number] Flask Pusher: Bill Vallejo PhD, Phone: [phone] Vi Royal NP LAB MICROBIOLOGY - GEN ERAL ORDERABLES Final Result Performing Organization Address [facility] Co de Phone Number [facility] - * Dexa Axial Skeleton Bone [...] IMG DXA PROCEDURES Final Re sult * TN ARTHROCENTESIS ASPIR&/INJ MAJOR JT/BURSA W/O US (11/21/2024 [...] with no immediate complications us Lucia Moncada INDUSTRIAL GREEN SYSTEMS DESIGNER IN CLINIC/BEDSIDE ORDERAB LES Final Result * [...] Mammogram Bilateral W Sunday (09/16/2024 7:14 AM MOWER MECHANIC) Anatomical Region Laterality Modality Breast Bilateral Mammography 09/16/2024 8:10 AM MOWER MECHANIC Impressions 09/16/2024 8:10 AM MOWER MECHANIC 1. Area in the right breast at [...] Farzaneh Roberts M.D. Narrative 09/16/2024 8:10 AM MOWER MECHANIC EXAMINATION: BILATERAL DIGITAL DIAGNOSTIC MAMMOGRAM INCLUDING CAD [...] Recently Relevant to Health Maintenance Insurance [facility] [place] MEDICARE T SENIOR SUPPLEMENT MEDICARE AET SENIOR SUPPLEMENT Advance Directives For more information, please contact: [phone] * Full Code (Latest Code Status on File) Date Activated Date Inactivated Comments 10/09/2023 7:29 AM 10/09/2023 4:26 PM Care Teams Third Rail Installer Relationship Specialty [place] [address] [place] [address] PCP - General Family Practice 06/22/23
--- OUTSIDE RECORDS SUMMARY | 2024-12-17 21:38 | XMS_ITS | Encounter Summary ---
Author Organization [facility] Address [address] [facility] [address] [place] [address] Care Team Providers Care Metal Furniture Repairer Name Role Phone Tyler Davis MD Primary Care Provider [phone]- [phone] Encounter Details Date Type Department Care Team (Late st Contact Info) Description 11/28/2024 Results [facility] [address] [facility] Medical Office Building [address] [place] [address] Almaz Galvez MD [address] 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
--- OUTSIDE RECORDS SUMMARY | 2024-12-17 21:38 | XMS_ITS | Encounter Summary ---
Author Organization [facility] Address [address] [facility] [address] [place] [address] Care Team Providers Care Press Puller Name Role Phone Tyler Davis MD Primary Care Provider [phone]- [phone] Encounter Details Date Type Department Care Team (Late st Contact Info) Description 12/04/2024 Results [facility] [address] [facility] Medical Office [address] [place] [address] Vi Royal, LUIS E [address] [facility] [address] [place] [address] Urine culture Urine, clean voided, [...] 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
--- OUTSIDE RECORDS SUMMARY | 2024-12-17 21:38 | XMS_ITS | Encounter Summary ---
Author Organization [facility] Address [address] [facility] [address] [place] [address] Care Team Providers Care Steel Roller Name Role Phone Tyler Davis MD Primary Care Provider [phone]- [phone] Reason for Visit * Reason Onset Date Comments REALTIME REPORTER Problem 12/16/2024 Encounter Details Date Type Department Care Team (Late st Contact Info) Description 12/16/2024 Telephone [facility] [address] [facility] Medical Office Building [address] [place] [address] Almaz Galvez MD [address] [facility] [address] [place] [address] REALTIME REPORTER Problem Social History Tobacco Use Types Packs/Day [...] 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
--- OUTSIDE RECORDS SUMMARY | 2024-12-17 21:38 | XMS_ITS | CONTINUITY OF CARE DOCUMENT ---
Author Name carlosxuanharper Address Unknown Organization [facility] Address [id number] [place] [address] [address] [place] [address] Phone [phone] Care Team Providers Care Mine Safety Engineer Name Role Phone Froilan Philip MD Unavailable [phone] Kael Awan MD Unavailable [phone] Kael Awan MD Unavailable [phone] INSURANCE PROVIDERS Payer name Policy type / Coverage type Boss red democrat ID [id number]
--- OUTSIDE RECORDS SUMMARY | 2024-12-17 21:38 | XMS_ITS | Encounter Summary ---
Author Organization [facility] Healthcare Address [address] [place] [address] Care Team Providers Care Real Estate Leasing Agent Name Role Phone Tyler Davis MD Primary Care Provider [phone]- [phone] Reason for Visit * Reason Comments Pelvic Pain Started last night, with a sharp, stabbing pain, and pressure, vibrating, constant pain, Encounter Details Date Type Department Care Team (Late st Contact Info) Description 12/17/2024 3:45 PM CDT Office Visit [facility] at [address] [address] [place] [address] Pelvic pain (Primary Dx) Social [...] 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 Subjective/Objective Patient ID: Edith Fletcher is a 69 y.o. female. Chief Complaint Pelvic Pain (Started last night, with a sharp, stabbing pain, and pressure, vibrating, constant pain, ) Pt presents w/ pelvic pain acute onset 0430 this morning. Woke her from sleeping. Describes the pain as constant, stabbing, vibrating pain. Rates it as 10/10 and is rocking back and forth and guarding. Reports nausea no vomiting. Had sweats this morning, no recorded fever. Review of Systems All systems reviewed and are negative or non contributory for this patient's presentation today other than as stated in the HPI . Physical Exam Constitutional: General: She is not in acute distress. HENT: Head: Normocephalic and atraumatic. Mouth/Throat: Pharynx: Oropharynx is clear. Eyes: Pupils: Pupils are equal, round, and reactive to light. Cardiovascular: Rate and Rhythm: Normal rate. Pulmonary: Effort: Pulmonary effort is normal. Abdominal: Tenderness: There is abdominal tenderness (lower abdominal moderate ttp). There is guarding. Musculoskeletal: General: Normal range of motion. Cervical back: Normal range of motion. Skin: General: Skin is warm and dry. Neurological: General: No focal deficit present. Mental Status: She is alert and oriented to person, place, and time. Psychiatric: Mood and Affect: Mood normal. Behavior: Behavior normal. Vitals: 12/17/24 1546 BP: (!) 172/87 Pulse: 94 Resp: 18 Temp: 36.6 ??C (97.8 ??F) SpO2: 96% Weight: 77.2 kg (170 lb 3.2 oz) Height: 146.1 cm (4' 9.52) Assessment/Plan -pt presents w/ acute onset 05/01 stabbing vibrating pelvic pain -pt is rocking back and forth and guarding on exam -referred to ED for further evaluation, r/o acute abdomen Diagnoses and all orders for this visit: Pelvic pain (Primary) No results found for this or any previous visit (from the past 4 hours). Disposition ER - ROSENDA Duffy 12/17/24 4:12 PM Cosigned by Akira Armednariz MD at 12/17/2024 4:39 PM CDT documented in this encounter Plan of Treatment Not on file documented as of this encounter Visit Diagnoses Diagnosis Pelvic pain- Primary documented in this encounter Care Teams Real Estate Leasing Agent Relationship Specialty [place] [address] [place] [address] PCP - General Family Practice 06/22/23 documented as of this encounter
--- OUTSIDE RECORDS SUMMARY | 2024-12-17 21:39 | XMS_ITS | Clinical Summary ---
Author Organization [facility] Address [address] [place] [address] Care Team Providers Care Director Emergency Services Name Role Phone Tyler Davis MD Primary Care Provider [phone]- [phone] Allergies Active Allergy Reactions Criticality Noted Date [...] [facility] at [address] [address] Marlene Vail PA Pelvic pain (Primary Dx) 12/16/2024 Telephone [facility] [address] [place] [address] [address], [place] [address] Almaz Galvez MD CHART CHANGER Problem 12/04/2024 Telephone [facility] - Imaging [address] [place] [address] Lety Rodriguez, SOPHIA Test Results 12/04/2024 Results [facility] [address] [place] [address] [place] [address] Vi oRyal, LUIS E Urine culture Urine, clean voided, NuSwab BV and Mariah, JUAN R 12/04/2024 Telephone [facility] - Imaging [address] [place] [address] Lety Rodriguez, SOPHIA Follow-Up Call 24-48 Hours 12/03/2024 11:43 AM CDT - 12/03/2024 11:59 PM CDT Hospital Encounter [facility] - Imaging [address] [place] [address] Almaz Galvez MD Abnormal ultrasound of breast Discharge Disposition: Discharge to home or self care 12/03/2024 11:12 AM CDT - 12/03/2024 11:59 PM CDT Hospital Encounter [facility] - Imaging [address] [place] [phone] Almaz Galvez MD Abnormal ultrasound of breast Discharge Disposition: Discharge to home or self care 12/02/2024 Orders Only [facility] [address] [place] [address] Office [address] [place] [address] Almaz Galvez MD Osteoporosis, unspecified osteoporosis type, unspecified pathological fracture presence (Primary Dx) 12/01/2024 11:30 AM CDT Office Visit [facility] [address] [facility] Medical Office Building [address] [place] [address] Vi Royal NP Vaginal discharge (Primary Dx); Vaginal odor; Burning with urination; Post-traumatic stress 12/01/2024 Telephone [facility] [address] [facility] Office Building [address] [place] [address] Jade Schulz Referral Request 11/28/2024 Results [facility] [address] [facility] Medical Office Building [address] [place] [address] Almaz Galvez MD Dexa Axial Skeleton Bone Density 1 or 2 Site 11/27/2024 12:16 PM CDT - 11/27/2024 11:59 PM CDT Hospital Encounter [facility] - Imaging [address] [place] [address] [place] [address] Postmenopausal Discharge Disposition: Discharge to home or self care 11/21/2024 8:15 AM CDT Office Visit [facility] Orthopaedic Surgery [address] [facility] Medical Office Building [address] [place] [address] Lucia Moncada NP Pain in both knees, unspecified chronicity (Primary Dx); Bilateral primary osteoarthritis of knee; Class 2 obesity due to excess calories with body mass index (BMI) of 35.0 to 35.9 in adult, unspecified whether serious comorbidity present 11/21/2024 7:27 AM CDT - 11/21/2024 11:59 PM CDT Hospital Encounter [facility] [address] [facility] [address] [place] [address] Pain in both knees, unspecified chronicity Discharge Disposition: Discharge to home or self care 11/13/2024 Orders Only [facility] - Imaging [address] [place] [address] [place] [address] Nieves Mario RN 11/13/2024 Telephone [facility] - Imaging [address] [place] [address] [place] [address] Nievse Mario RN Appointment 10/20/2024 Telephone [facility] - Imaging [address] [facility] [address] [place] [address] Lety Rodriguez RN 09/30/2024 Telephone [facility] - Imaging [address] [facility] [address] [place] [address] Ayesha Ramirez, electrical research engineer Only from Last 3 Months Surgical History [...] 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 file Not [...] 11/27/2024, 09/10/2019 Medical Devices Implanted Type Area Assistant Housekeeping Manager Device Identifier Shelf Expiration Date Model / Serial / Lot Bard Peripheral Vascular Senomark Ultracor Bard 14ga 10cm Rigid Needle 1 Microfiber Pad [id number] - [id number] Implanted:Qty: 1 on 12/03/2024 at [facility] [employer] [id number] / / Procedures Procedure Name Priority Date/Time [...] Read Routine (OP Routine) 09/16/2024 7:14 AM SURVEY RESEARCHER Breast pain from Last 3 Months or [...] the procedure well, and left the Breast [facility] in good condition, without evidence of [...] tolerated the procedure well, and left the [facility] in good condition, without evidence of immediate complication. us Almaz Galvez MD IMG MAMMO PROCEDURES Edited Result - Final * Surgical pathology (12/03/2024 12:47 PM CDT) Tissue (Breast biopsy, needle core) 12/03/2024 12:47 PM CDT Comment:Dr. Cordero- Hypoec hoic mass. Narrative PATHOLOGY [facility] - 12/04/2024 2:02 PM CDT [address] [address] Tele: Nieves Ibrahim MD - Bleacher Lard Note to Patients: This report may contain [...] PATHOLOGY REPORT Patient Name: EDITH WITT Address: [address] [place] [id number] Gender: F : 1955 (Age: 69) Service: Location: , Hospital #: [id number] Patient Type: [facility] Taken: 12/03/2024 Received 12/03/2024 Reported: 12/04/2024 Physician(s): [facility] - MD Tyler Black M.D. DIAGNOSIS: Breast, [...] 4 x 14 gauge cores are five signh fibrous cores of tissue ranging from 0.3 [...] entirely submitted in cassette labeled A1. [facility] MICROSCOPIC DESCRIPTION: Sections of the right breast [...] and lobular components. Clerical Data Follows A; 46974, 91005, 52918(2) REPORT IMAGES AND/OR SCANNED DOCUMENTS ONLY VIEWABLE IN PDF FORMAT The immunohistochemical test(s) cited in this report, if any, was developed and its performance characteristics determined by [facility] Pathology Department. It has not been cleared or approved by the U.S. Food and Drug Administration. The FDA has determined that such clearance or approval is not necessary. This test is used for clinical purposes. It should not be regarded as investigational or for research. [facility] Laboratory is certified under the Clinical Laboratory [...] or completely in the following laboratories: [facility], [address] [facility], [place] [address] [facility], [address], [place] [address]. us Almaz Galvez MD LAB PATHOLOGY ORDERABLES Fi nal Result PATHOLOGY [facility] Laboratory Receiving [facility] [place], [place] [id number] * NuSwab BV and Mariah, JUAN R [...] [facility] - 12/02/2024 7:08 PM CDT Test(s) 713994- Atopobium vaginae; 425865- BVAB 2; 216367- Megasphaera 1 was developed and its performance characteristics determined by [facility]. It has not been cleared or approved by the Food and Drug Administration. Test(s) 519261-Ywhydav albicans, JUAN R; 339673-Ywyggkj glabrata, JUAN R was developed and its performance characteristics determined by [facility]. It has not been cleared or approved by the Food and Drug Administration. Performed at: 01 - [address] [id number] Automotive Drivability Technician: Didi Calvo MD, Phone: [phone] us Vi Royal NP LAB MICROBIOLOGY - [...] 12/03/2024 7:09 AM CDT Performed at: - [address] [id number] Automotive Drivability Technician: Bill Vallejo PhD, Phone: [phone] Vi Royal NP LAB MICROBIOLOGY - GEN ERAL ORDERABLES Final Result [facility] * Dexa Axial Skeleton Bone Density [...] with no immediate complications us Lucia Moncada TRIMMER BUFFING WHEEL IN CLINIC/BEDSIDE ORDERAB LES Final Result * [...] by: Rachid Guadalupe M.D. us Lucia Moncada TRIMMER BUFFING WHEEL IMG XR PROCEDURES Final R esult * [...] by: Rachid Guadalupe M.D. us Lucia Moncada TRIMMER BUFFING WHEEL IMG XR PROCEDURES Final R esult * (ABNORMAL) Diagnostic Mammogram Bilateral W Sunday (09/16/2024 7:14 AM SURVEY RESEARCHER) Anatomical Region Laterality Modality Breast Bilateral Mammography 09/16/2024 8:10 AM SURVEY RESEARCHER Impressions 09/16/2024 8:10 AM SURVEY RESEARCHER 1. Area in the right breast at [...] signed by: Leighton Sosa 09/16/2024 8:10 AM SURVEY RESEARCHER EXAMINATION: BILATERAL DIGITAL DIAGNOSTIC MAMMOGRAM INCLUDING CAD [...] Maintenance Insurance MEDICARE AET[employer] SENIOR SUPPLE[place] [facility] [facility] [place] AET SENIOR SUPPLEMENT MEDICARE AET SENIOR SUPPLEMENT Advance Directives For more information, please contact: [phone] * Full Code (Latest Code Status on File) Date Activated Date Inactivated Comments 10/09/2023 7:29 AM 10/09/2023 4:26 PM Care Teams Director Emergency Services Relationship Specialty [place] [address] [place] [address] PCP - General Family Practice 06/22/23
--- OUTSIDE RECORDS SUMMARY | 2024-12-17 21:39 | XMS_ITS | Clinical Summary ---
Author Organization [facility] Address [address] [place] [address] Phone Care Team Providers Care Assistant Professor Of Spanish Name Role Phone Chico Perea MD Primary Care Provider Allergies Active Allergy Reactions Criticality Noted Date [...] Comments Blood Pressure 178/91 07/24/2023 7:00 AM FELT TIPPING MACHINE TENDER Pulse 72 07/24/2023 7:00 AM FELT TIPPING MACHINE TENDER Temperature 36.3 C (97.4 F) 07/24/2023 7:00 AM FELT TIPPING MACHINE TENDER Respiratory Rate 18 07/24/2023 7:00 AM FELT TIPPING MACHINE TENDER Oxygen Saturation - - Inhaled Oxygen Concentration - - Weight 86.5 kg (190 lb 12.8 oz) 07/24/2023 7:00 AM FELT TIPPING MACHINE TENDER Height 152.4 cm (5') 06/13/2023 8:00 AM FELT TIPPING MACHINE TENDER Body Mass Index 37.26 06/13/2023 8:00 AM FELT TIPPING MACHINE TENDER Plan of Treatment Health Maintenance Due Date [...] B [employer] MEDICARE SUPP AESSI Care Teams Assistant Professor Of Spanish Relationship Specialty Start Date End Date Chico Perea MD [address] [place] [address] PCP - General Internal Medicine 01/15/15
[2024-12-17] MEDS: CEFDINIR 300 MG CAPSULE PO (21:46)
[2024-12-17] MEDS: diazePAM INJ (*CRX) 10 MG/2 ML SYRINGE 5 MG IM (21:46)
== END 2024-12-17 22:25 | disposition home or self-care (01) ==
PROVIDERS: Physician Assistant; Emergency Provider Emergency Medicine; PCP Family Medicine
DX: N39.0 Urinary tract infection, site not specified (principal); I10 Essential (primary) hypertension; J45.909 Unspecified asthma, uncomplicated; Z87.891 Personal history of nicotine dependence
CPT/HCPCS: 36415; 80053; 81001; 83690; 85025; 87077; 87086; 87186; 96372; 99283; A9270; J3360